=== PATIENT | female | born 1950 | race Caucasian/White ===

== ENCOUNTER → 2020-01-19 13:12 | Outpatient (CLI) | payer MEDICARE, SELFPAY ==
--- NOTE | ~2020-01-19 | MM_ITS ---
EXAMINATION: MM screening [facility] BI w [facility] HISTORY: Screening mammogram TECHNIQUE: Craniocaudal and mediolateral oblique 3-D tomosynthesis images were obtained and synthetic 2-D images were generated. CAD analysis was submitted and interpreted. COMPARISON: 10/08/2018, 10/06/2017, 09/30/2017, 09/13/2016, 09/11/2016 BREAST PARENCHYMAL COMPOSITION: There are scattered areas of fibroglandular density. FINDINGS: RIGHT BREAST: There is possible architectural distortion in the middle third of the central breast be st appreciated 6.5 cm from the nipple on craniocaudal tomosynthesis image 32/70. LEFT BREAST: There is no evidence of suspicious mass, calcification, or architectural distortion to s uggest malignancy. There has been no significant interval change. IMPRESSION: 1. Possible right breast architectural distortion. 2. Additional mammographic views and possible breast ultrasound are recommended. BI-RADS Category 0: Incomplete: Needs additional imaging evaluation. Reviewed, dictated and finalized at location A. IMPRESSION: 1. Possible right breast architectural distortion. 2. Additional mammographic views and possible breast ultrasound are recommended . BI-RADS Category 0: Incomplete: Needs additional imaging evaluation.
== END ==
PROVIDERS: PCP Family Medicine; Visit Provider Family Medicine
DX: Z12.31 Encounter for screening mammogram for malignant neoplasm of breast (principal); R92.8 Other abnormal and inconclusive findings on diagnostic imaging of breast
CPT/HCPCS: 77063; 77067

== ENCOUNTER → 2020-01-28 08:25 | Outpatient (CLI) | payer MEDICARE, SELFPAY ==
--- NOTE | ~2020-01-28 | MMUS_ITS ---
EXAMINATION: MM diagnostic mammo unilat RT, US breast RT limited HISTORY: Possible architectural distortion of the right breast on screening mammogram TECHNIQUE: Additional 3-D tomosynthesis images of the right breast were performed and synthetic 2-D i mages were generated. CAD analysis was submitted and interpreted. High resolution limited right breas t ultrasound was performed. COMPARISON: 10/08/2018, 10/06/2017, 09/30/2017, 09/11/2016 FINDINGS: MAMMOGRAPHIC FINDINGS: There is architectural distortion in the middle third of the slightly outer right breast at the 9:00 location 7 cm from the nipple. There is a questionable 3 mm central mass (CC tomosynthesis image 31/6 3). No suspicious calcification is identified. ULTRASOUND: There is a questionable 3 mm hypoechoic, not parallel mass with indistinct margins at the 8:30 locati on 2 cm from the nipple with posterior acoustic shadowing and no internal vascularity. It is not ramez r if this corresponds to the mammographic finding in question. IMPRESSION: 1. Right breast architectural distortion and possible mass without definite sonographic correlate. 2. Tomosynthesis guided biopsy is recommended. BI-RADS category 4, suspicious findings. Reviewed, dictated and finalized at location A. IMPRESSION: 1. Right breast architectural distortion and possible mass without definite son ographic correlate. 2. Tomosynthesis guided biopsy is recommended. BI-RADS category 4, suspicious findings.
== END ==
PROVIDERS: PCP Family Medicine; Visit Provider Family Medicine
DX: R92.8 Other abnormal and inconclusive findings on diagnostic imaging of breast (principal)
CPT/HCPCS: 76642; 77065

== ENCOUNTER 2021-03-15 13:56 | Outpatient (CLI) | payer MEDICARE, SELFPAY ==
--- NOTE | ~2021-03-15 | DEXA_ITS ---
Bone Density Report Name: Michelle Colon Age: 70 Sex: Female Ethnicity: White Date of : 1950 Indication: postmenopausal; inflammatory bowel disease; hysterectomy; Referring Provider: Charles De Los Santos Study: Bone densitometry was performed. Exam Date: March 15, 2021 Accession number: [id number] Bone Density: Region BMD T-score Z-score Classification AP Spine (L1-L4) 1.142 0.9 2.9 Normal Femoral Neck (Left) 0.663 -1.7 0.0 Osteopenia Total Hip (Left) 0.863 -0.6 0.8 Normal Total Hip Bilateral Avg 0.865 -0.6 0.8 Normal Femoral Neck (Right) 0.678 -1.5 0.2 Osteopenia Total Hip (Right) 0.867 -0.6 0.8 Normal World Health Organization criteria for BMD impression classify patients as: Normal (T-score at or above -1.0), Osteopenia (T-score between -1.0 and -2.5), or Osteoporosis (T-score at or below -2.5). 10-year Fracture Risk: FRAX not reported because: Treated for osteoporosis Clinical Information Provided by Patient: Is being treated for osteoporosis Has the following medical conditions: Inflammatory bowel diseases, Hysterectomy Patient maximum height was 66 Menopause Age: 32 No regular weight bearing exercise Drinks caffeinated beverages Onset of menses at age 15 Number of children 2 Impression: The patient has low bone mass, based on the Left Femoral Neck T-score. Discussion: It is important to ask patients whether they are taking their medications and to encourage continued and appropriate compliance with their osteoporosis therapies to reduce fracture risk. It is also important to review their risk factors and encourage appropriate calcium and vitamin D intakes, exercise, fall prevention and other lifestyle measures. Follow-Up: Consider a repeat BMD and Vertebral Fracture Assessment (VFA) exam in 2 years or sooner if medically necessary, to reassess this patient's status. Reported by: EDYTA on 03/15/2021 2:39:00 PM. Reviewed, dictated and finalized at location ACarlos SIMS
== END 2021-03-15 13:57 | disposition home or self-care (01) ==
LOC: ANHIMG 14:05
PROVIDERS: PCP Family Medicine; Visit Provider Physician Assistant Medical
DX: Z78.0 Asymptomatic menopausal state (principal); N95.8 Other specified menopausal and perimenopausal disorders; M85.851 Other specified disorders of bone density and structure, right thigh; M85.852 Other specified disorders of bone density and structure, left thigh
CPT/HCPCS: 77080

== ENCOUNTER 2021-03-21 00:10 | Day surgery (SDC) | payer MEDICARE, SELFPAY ==
[2021-03-08 15:34] VITALS: BMI 23.1
[2021-03-21 06:54] VITALS: BP 107/53; PULSE 93; RESP 18; TEMP 36.1; O2SAT 99; BMI 23.3
[2021-03-21] MEDS: LACTATED RINGERS 1,000 ML 150 ML IV CONT (07:04)
[2021-03-21 07:06] LABS: Glucose Point of Care 167 mg/dl (65-105)
--- NOTE | 2021-03-21 07:14 | WPDANESEPPF ---
Anes - Initial Pre Proc Eval Procedure: Operation Date: 03/21/21 08:00 Proposed Procedures p Screening Colonoscopy - Stef Burr MD Date/Time: 03/21/21 07:14 Surgeon: Stef Burr MD Pre Op Diagnosis: hx of colon polyps, family hx of colon ca Patient Data Age: 70 Gender: F Height: 1.68 m Weight: 65.5 kg Last Vital Signs Temp 36.1 C L 03/21/21 06:54 Pulse 93 03/21/21 06:54 Resp 18 03/21/21 06:54 BP 107/53 L 03/21/21 06:54 Pulse Ox 99 03/21/21 06:54 Allergies Allergy/AdvReac Type Severity Reaction Status Date / Time No Known Allergies Allergy Verified 03/21/21 06:52 Home Medications Medication Instructions Recorded Confirmed Type brimonidine 0.2 % eye drops 1 drop EACH EYE Q8H 06/03/19 03/21/21 History latanoprost 0.005 % eye drops 1 drop EACH EYE DAILY 06/03/19 03/21/21 History timolol 0.5 % eye drops 1 drop EACH EYE Q12H 06/03/19 03/21/21 History rosuvastatin 10 mg tablet 10 mg PO DAILY #90 tablet 09/13/20 03/21/21 Rx blood-glucose meter #1 ea 09/29/20 03/14/21 Rx blood sugar diagnostic #100 ea 10/04/20 03/14/21 Rx lancets #100 ea 10/04/20 03/14/21 Rx fluoxetine 20 mg capsule See Rx Instructions .ROUTE 10/16/20 03/21/21 Rx .COMPLEX #90 cap lisinopril 20 mg tablet 20 mg PO DAILY tablet 11/03/20 03/14/21 History metformin 500 mg tablet,extended See Rx Instructions .ROUTE 11/22/20 03/14/21 Rx release 24 hr .COMPLEX #270 tablet spironolactone 50 mg tablet 50 mg PO BID #180 tablet 01/16/21 03/21/21 Rx meloxicam See Rx Instructions .ROUTE 03/08/21 03/21/21 History .COMPLEX PRN icosapent ethyl 1 gram capsule 2 g PO BID #360 cap 03/14/21 03/21/21 Rx Laboratory Tests 03/21/21 07:02 POC Capillary Glucose 167 mg/dl H mg/dl (65-105) Patient hx anesthesia problems: none Family hx anesthesia problems: none PMFSH Past Medical History Medical History Androgenic alopecia Conn syndrome Gout Hypertriglyceridemia Internal hemorrhoids Rotator cuff tear arthropathy of left shoulder (~2007) Statin intolerance Surgical History Surgical History History of hemorrhoidectomy History of hernia repair History of hysterectomy (~1992) Hx of cholecystectomy (~2013) Family History Family History Grandparent Diabetes mellitus Family history of glaucoma Hypertension Family history of cardiovascular disease Cerebrovascular accident Father Family history of glaucoma Hypertension Family history of elevated blood lipids Cerebrovascular accident Carcinoma of colon Family history of type 2 diabetes mellitus Sibling Family history of glaucoma Hypertension Family history of elevated blood lipids Mother Hypertension Other Family history of gout Social History Social History Years smoked: 20 Tobacco type: cigarettes Smoking end date: 07/14/09 Alcohol intake: never Living arrangements: with family Gender identity (if verbalized by the patient): Female Spiritual care concerns: No Anes - Eval Final PreProcedure Day of Procedure 03/21/21 07:14 Patient weight: normal Heart: regular rate and rhythm Lungs: clear to auscultation Airway: Mallampati scale class II Neurological: alert and oriented Last oral intake: >/= 8 hours ASA classification: II Emergent: no Anesthetic plan: proceed Anesthesia type and monitoring: general GIVS and standard monitoring Informed Consent: The patient's anesthetic plan and its attendant risks and benefits were discussed with the patient/family/POA. Questions were solicited and answers provided to the satisfaction of the patient/family/POA.
--- NOTE | 2021-03-21 07:41 | WPDGICN ---
Assessment and Plan Assessment and plan (1) History of colon polyps: Code(s): Z86.010 - Personal history of colonic polyps Status: Acute Assessment and Plan: Patient presents for colonoscopy because of prior history of colon polyps. Follow-up at 5 year intervals is advised. (2) Family history of colon cancer in father: Code(s): Z80.0 - Family history of malignant neoplasm of digestive organs Status: Acute Assessment and Plan: Patient's father had colon cancer. Also suggesting follow-up at 5 year intervals as appropriate. GI Consult Note Consult date/time: 03/21/21 07:41 HPI: Michelle Colon is a 70 year old female Presents for screening colonoscopy. She has had colon polyps in several previous endoscopies. Family history is significant her father had colon cancer. Patient reports that her current weight appetite bowel movements are normal. She denies abdominal pain. Most recent colonoscopy 2017 revealed colon polyps. Patient does report a distant history of diverticulitis but has had no recent abdominal pain. Her bowel habits are normal. Review of Systems Review of Systems: All systems reviewed & are unremarkable except as noted in HPI and below PMFSH Past Medical History Medical History Androgenic alopecia Conn syndrome Gout Hypertriglyceridemia Internal hemorrhoids Rotator cuff tear arthropathy of left shoulder (~2007) Statin intolerance Surgical History Surgical History History of hemorrhoidectomy History of hernia repair History of hysterectomy (~1992) Hx of cholecystectomy (~2013) Family History Family History Grandparent Diabetes mellitus Family history of glaucoma Hypertension Family history of cardiovascular disease Cerebrovascular accident Father Family history of glaucoma Hypertension Family history of elevated blood lipids Cerebrovascular accident Carcinoma of colon Family history of type 2 diabetes mellitus Sibling Family history of glaucoma Hypertension Family history of elevated blood lipids Mother Hypertension Other Family history of gout Social History Social History Years smoked: 20 Tobacco type: cigarettes Smoking end date: 07/14/09 Alcohol intake: never Living arrangements: with family Gender identity (if verbalized by the patient): Female Spiritual care concerns: No Meds Home Medications and Allergies Home Medications Medication Instructions Recorded Confirmed Type brimonidine 0.2 % eye drops 1 drop EACH EYE Q8H 06/03/19 03/21/21 History latanoprost 0.005 % eye drops 1 drop EACH EYE DAILY 06/03/19 03/21/21 History timolol 0.5 % eye drops 1 drop EACH EYE Q12H 06/03/19 03/21/21 History rosuvastatin 10 mg tablet 10 mg PO DAILY #90 tablet 09/13/20 03/21/21 Rx blood-glucose meter #1 ea 09/29/20 03/14/21 Rx blood sugar diagnostic #100 ea 10/04/20 03/14/21 Rx lancets #100 ea 10/04/20 03/14/21 Rx fluoxetine 20 mg capsule See Rx Instructions .ROUTE 10/16/20 03/21/21 Rx .COMPLEX #90 cap lisinopril 20 mg tablet 20 mg PO DAILY tablet 11/03/20 03/14/21 History metformin 500 mg tablet,extended See Rx Instructions .ROUTE 11/22/20 03/14/21 Rx release 24 hr .COMPLEX #270 tablet spironolactone 50 mg tablet 50 mg PO BID #180 tablet 01/16/21 03/21/21 Rx meloxicam See Rx Instructions .ROUTE 03/08/21 03/21/21 History .COMPLEX PRN icosapent ethyl 1 gram capsule 2 g PO BID #360 cap 03/14/21 03/21/21 Rx Allergies Allergy/AdvReac Type Severity Reaction Status Date / Time No Known Allergies Allergy Verified 03/21/21 06:52 Vital Signs Vital Signs - 24 hr 03/21/21 06:54 Temperature 97 F L Pulse Rate 93 Respiratory Rate 18 Blood Pressure 107/53 L Pulse Oximetry 99 Exam Narrati
[2021-03-21 08:54] VITALS: BP 118/61; PULSE 80; RESP 16; O2SAT 96
[2021-03-21 09:03] LABS: Glucose Point of Care 127 mg/dl (65-105)
[2021-03-21 09:04] VITALS: BP 92/58; PULSE 77; RESP 18; O2SAT 98
[2021-03-21 09:14] VITALS: BP 86/54; PULSE 78; RESP 20; O2SAT 98
[2021-03-21 09:24] VITALS: BP 91/55; PULSE 80; RESP 18; O2SAT 98
== END 2021-03-21 10:35 | disposition home or self-care (01) ==
PROVIDERS: PCP Family Medicine; Visit Provider Internal Medicine Gastroenterology
PROC: 0DJD8ZZ Inspection of Lower Intestinal Tract, Via Natural or Artificial Opening Endoscopic (ICD-10-PCS; CPT 45378; principal; 2021-03-21 08:00)
DX: Z12.11 Encounter for screening for malignant neoplasm of colon (principal); K57.30 Diverticulosis of large intestine without perforation or abscess without bleeding; K64.8 Other hemorrhoids; Z86.010 Personal history of colon polyps; Z80.0 Family history of malignant neoplasm of digestive organs; E78.1 Pure hyperglyceridemia; M10.9 Gout, unspecified; E26.01 Conn's syndrome; L64.9 Androgenic alopecia, unspecified; Z87.891 Personal history of nicotine dependence; Z79.84 Long term (current) use of oral hypoglycemic drugs
CPT/HCPCS: G0105; 82948; J2704; J7120

== ENCOUNTER 2021-05-24 08:36 | Emergency (ER) | payer MEDICARE, SELFPAY ==
--- NOTE | ~2021-05-24 | XR_ITS ---
EXAMINATION: XR foot LT min 3V DATE: 05/24/2021 10:04 INDICATION: Left foot pain TECHNIQUE: Dorsoplantar, lateral, and 2 oblique views of the left foot were obtained. COMPARISON: 06/02/2012 FINDINGS: The bones are osteopenic which limits the sensitivity for fracture however none is seen. Th ere is mild osteoarthritis of multiple interphalangeal joints. Surgical changes are noted in the calc aneus. There is calcified atherosclerosis. There is mild dorsal soft tissue swelling of the foot. IMPRESSION: 1. Mild dorsal soft tissue swelling of the foot without acute osseous abnormality identified. Reviewed, dictated and finalized at location B. R [employer] IMPRESSION: 1. Mild dorsal soft tissue swelling of the foot without acute osseous abnormali ty identified.
[2021-05-24 09:04] VITALS: BP 113/66; PULSE 92; RESP 16; TEMP 37.7; O2SAT 99
[2021-05-24 09:17] VITALS: BP 113/66; PULSE 92; RESP 16; TEMP 37.7; O2SAT 99
--- NOTE | 2021-05-24 09:41 | ED.LOWEXIN ---
HPI - Extremity Injury (Lower) General Chief Complaint: Extremity Injury, Lower Stated Complaint: left foot pain History of Present Illness HPI Narrative: This is a 70-year-old female comes in complaining left foot pain swelling states that it started couple days ago but is increasingly gotten worse she is not for sure if she has like a fracture from stress fractures or if she has something else going on but the top of her foot is hurting. Related Data Home Medications Medication Instructions Recorded Confirmed brimonidine 0.2 % eye drops 1 drop EACH EYE Q8H 06/03/19 05/24/21 latanoprost 0.005 % eye drops 1 drop EACH EYE DAILY 06/03/19 05/24/21 timolol 0.5 % eye drops 1 drop EACH EYE Q12H 06/03/19 05/24/21 meloxicam See Rx Instructions .ROUTE 03/08/21 05/24/21 .COMPLEX PRN Allergies Allergy/AdvReac Type Severity Reaction Status Date / Time No Known Allergies Allergy Verified 05/24/21 09:16 Review of Systems Review of Systems: l foot pain All systems reviewed & are unremarkable except as noted in HPI and below PMFSH Past Medical History Medical History Androgenic alopecia Conn syndrome Gout Hypertriglyceridemia Internal hemorrhoids Rotator cuff tear arthropathy of left shoulder (~2007) Statin intolerance Surgical History Surgical History History of hemorrhoidectomy History of hernia repair History of hysterectomy (~1992) Hx of cholecystectomy (~2013) Family History Family History Grandparent Diabetes mellitus Family history of glaucoma Hypertension Family history of cardiovascular disease Cerebrovascular accident Father Family history of glaucoma Hypertension Family history of elevated blood lipids Cerebrovascular accident Carcinoma of colon Family history of type 2 diabetes mellitus Sibling Family history of glaucoma Hypertension Family history of elevated blood lipids Mother Hypertension Other Family history of gout Social History Social History (Updated 05/21/21 @ 09:59 by Amaris Reyes Сергей) Years smoked: 20 Tobacco type: cigarettes Smoking end date: 07/14/09 Alcohol intake: never Gender identity (if verbalized by the patient): Female Spiritual care concerns: No Comments At time as signature, I have reviewed and agree with nursing past medical, social, surgical and family history. Please see nursing chart for further information. There is no relevant family history pertinent to the presenting complaint. Exam Narrative: GENERAL:Well-appearing, well-nourished, and in no acute distress. HEAD:Normocephalic. EYES: PERRLA. ENT: Nares clear, no rhinorrhea or epistaxis. CHEST: No respiratory distress. HEART: Regular rate and rhythm. ABDOMEN: normal active bowel sounds. EXTREMITIES decreased range of motion due to pain with. 1+ edema. SKIN: Warm, dry, no rash. NEURO: No focal deficits. Alert and oriented x3. Course Course Emergency Course: Mild dorsal soft tissue swelling of the foot without a QRS abnormality is identified although there is osteopenic changes that limits the sensitivity for further Vital Signs Vital signs: Vital Signs Temperature 99.8 F H 05/24/21 09:04 Pulse Rate 92 05/24/21 09:04 Respiratory Rate 16 05/24/21 09:04 Blood Pressure 113/66 05/24/21 09:04 Pulse Oximetry 99 05/24/21 09:04 Temperature 99.8 F H 05/24/21 09:17 Pulse Rate 92 05/24/21 09:17 Respiratory Rate 16 05/24/21 09:17 Blood Pressure 113/66 05/24/21 09:17 Pulse Oximetry 99 05/24/21 09:17 Discharge Plan Discharge Clinical Impression: Osteoarthritis of ankle or foot Patient Disposition: Home, Self-Care Condition: Stable Instructions: Antibiotic Form, Osteoarthritis (ED), Self-Care Measures with a Chronic Disease (ED) Additional Instruc
== END 2021-05-24 11:00 | disposition home or self-care (01) ==
PROVIDERS: Emergency Provider Nurse Practitioner Family; PCP Family Medicine
DX: M19.072 Primary osteoarthritis, left ankle and foot (principal); E26.01 Conn's syndrome; M10.9 Gout, unspecified; E78.1 Pure hyperglyceridemia; L64.9 Androgenic alopecia, unspecified
CPT/HCPCS: 73630; 99213; G0463

== ENCOUNTER 2022-03-13 08:04 | Outpatient (CLI) | payer MEDICARE, SELFPAY ==
--- NOTE | ~2022-03-13 | US_ITS ---
EXAMINATION: US art doppler w press LE BI DATE: 03/13/2022 09:27 INDICATION: Peripheral vascular disease. Right toe pain TECHNIQUE: Segmental pressures and plethysmographic and Doppler waveforms of the brachial and lower e xtremity arteries were obtained. COMPARISON: None. FINDINGS: Right and left brachial artery pressures of 104 mm Hg and 108 mm Hg, respectively, are concordant (no rmal difference <= 30 mmHg). The left high thigh pressure index is 1.44, respectively (normal > 1.2). The right high thigh pressure index was unable to be obtained due to inability to occlude the vessel . The right ankle-brachial index (ДМИТРИЙ) is 1.44 (normal >= 0.9-1). The right great toe-brachial index (T BI) is 0.48 (normal >= 0.6-0.8). The right lower extremity segmental pressure gradients are increased between the right dorsalis pedis artery and the right posterior tibial artery (normal gradients <= 2 0-30 mmHg between adjacent levels on the same leg or the same levels on the two legs). Arterial wavef orms are biphasic with brisk systolic upstrokes throughout the arteries of the right lower limb. The left ДМИТРИЙ is 1.61. The left TBI is 0.68. The left lower extremity segmental pressure gradients are increased between the left dorsalis pedis and posterior tibial arteries. Arterial waveforms are biph asic with brisk systolic upstrokes throughout the arteries of the left lower limb. IMPRESSION: 1. Mild arterial occlusive disease to the right lower limb with mildly decreased right TBI. 2. No significant arterial occlusive disease to the left lower limb with normal left ДМИТРИЙ and TBI. Reviewed, dictated and finalized at location A. IMPRESSION: 1. Mild arterial occlusive disease to the right lower limb with mildly decrease d right TBI. 2. No significant arterial occlusive disease to the left lower limb with normal left ДМИТРИЙ and TBI.
== END 2022-03-13 08:05 | disposition home or self-care (01) ==
PROVIDERS: PCP Family Medicine; Visit Provider Orthopaedic Surgery
DX: I73.9 Peripheral vascular disease, unspecified (principal)
CPT/HCPCS: 93923

== ENCOUNTER 2022-06-05 10:55 | Outpatient (CLI) | payer MEDICARE, SELFPAY ==
--- NOTE | 2022-06-05 11:04 | ECG_ITS ---
Measurements Intervals [place] Rate: 76 P: 35 OH: 196 QRS: -12 QRSD: 80 T: 37 QT: 368 QTc: 414 Interpretive Statements SINUS RHYTHM POOR R WAVE PROGRESSION, ANTERIOR LEADS BASELINE ARTIFACT- I, II, III, AVR, AVL, AVF, V1-V6 BORDERLINE ECG NO PREVIOUS ECG AVAILABLE FOR COMPARISON Electronically Signed On 06-05-2022 12:01:01 COPY WRITER by Nicolas Parra D.O.
== END 2022-06-05 10:56 | disposition home or self-care (01) ==
LOC: ANHSURGERY 10:59
PROVIDERS: PCP Family Medicine; Visit Provider Orthopaedic Surgery
DX: E11.65 Type 2 diabetes mellitus with hyperglycemia (principal); Z01.818 Encounter for other preprocedural examination
CPT/HCPCS: 93005

== ENCOUNTER 2022-06-13 01:28 | Day surgery (SDC) | payer MEDICARE, SELFPAY ==
[2022-06-04 15:37] VITALS: BMI 22.6
--- NOTE | 2022-06-04 15:53 | PC.NURSE ---
Report to the Outpatient Waiting Room, entrance under the green pavilion located off [facility], at time _1000_ on date _06/13/22_. Planned Procedure Time: _1200_. Time changes happen often and if your time is changed the preop area will call you the afternoon before. - You and your visitor will be asked to self-screen and do not enter if you have any COVID symptoms. - Only one visitor is requested with a max of two and NO children visitors are allowed at this time. - The patient visitor may be requested to leave or wait in car when not with patient due to distancing restrictions. - A mask is optional within the hospital. Patients may have clear liquids (water, carbonated beverages, clear teas, apple juice) until 3 hours prior to surgery (0900 AM) with a maximum of 20 ounces. - No food from midnight until time of surgery Take the following medications with a SIP of water the morning of surgery: _BRIMONIDINE & TIMOLOL EYE DROPS_ Medications to discontinue per physician __N/A____, Date to take last dose Please no make-up, nail georgian, hairspray, perfume, deodorant, or body powder the day of surgery. No jewelry (including any body piercings) or valuables the day of surgery, leave them at home. Please take a shower or bath the night before, or the morning of, surgery with an antibacterial soap. Wear comfortable, loose fitting clothing. - Jewelry must be removed prior to entering the operating room. Rings and piercings that are not removed may be cut off. - The hospital will not accept responsibility for valuables. - Please leave all valuables, including medications, at home the day of surgery. If you are going home after surgery, a licensed garbage truck driver must drive you home. - NO public transportation without another adult if you receive anesthesia. - We recommend that an adult stay with you for 24 hours following discharge. - We also recommend that you do not drive, make important decision, drink alcoholic beverages, or take any drugs that were not prescribed by your health care provider for at least 24 hours after your discharge time. Follow any additional instructions given to you from your surgeon. If you or anyone in your household have experienced Covid symptoms in the past week, please notify your surgeon or the nurse liaison at the phone number below for possible testing. Telephone instructions given to ___PT and asked if any additional questions and then verbalized understanding. Patient advised to call surgeon office or pre surgery nurse liaison [phone] if any additional questions.
--- NOTE | 2022-06-05 10:51 | PM.IMHP ---
H&P: HPI History of Present Illness Date/Time: 06/05/22 10:51 Chief Complaint: right 2nd toe deformity and pain Narrative: Right foot/2nd toe pain/deformity. Pt states that she has had the deformity for 5-6 years, however, in the past 8mo she started noticing pain. Pt states that she has tried and failed taking Tylenol/Ibuprofen for pain and presents for surgical treatment. Pt states that the pain is intermittent and will occur during walking/prolonged activity. Review of Systems Constitutional: Constitutional: Denies fever(s) Eyes: Eyes: Denies blurry vision ENT: Reports Normal hearing present Cardiovascular: Cardiovascular: Denies chest pain and Denies dyspnea Respiratory: Respiratory: Denies dyspnea and Denies wheezing Gastrointestinal: Gastrointestinal: Denies abdominal pain Genitourinary: Genitourinary: Denies urinary urgency Musculoskeletal: Musculoskeletal: Reports as per HPI and Denies numbness Integumentary/Breasts: Skin/Breast: Denies changing lesions and Denies sores Neurologic: Reports Normal hearing present, Denies behavioral changes, Denies confusion, Denies numbness and Denies convulsions Psychiatric: Psychiatric: Denies behavioral changes, Denies confusion and Denies hallucinations Endocrine: Endocrine: Denies heat intolerance Hematologic/Lymphatic: Hematologic/Lymphatic: Denies easy bleeding Allergic/Immunologic: Allergic/Immunologic: Denies wheezing PMFSH Past Medical History Medical History Androgenic alopecia Conn syndrome Gout Hammertoe of second toe of right foot Hypertriglyceridemia Internal hemorrhoids Peripheral arterial occlusive disease Rotator cuff tear arthropathy of left shoulder (~2007) Statin intolerance Surgical History Surgical History H/O breast surgery Left breast biopsy History of hemorrhoidectomy History of hernia repair History of hysterectomy (~1992) 1992 Hx of cholecystectomy (~2013) Family History Family History Grandparent Diabetes mellitus Family history of glaucoma Hypertension Family history of cardiovascular disease Cerebrovascular accident Father Family history of glaucoma Hypertension Family history of elevated blood lipids Cerebrovascular accident Carcinoma of colon Family history of type 2 diabetes mellitus Sibling Family history of glaucoma Hypertension Family history of elevated blood lipids Mother Hypertension Other Family history of gout Social History Social History Smoking packs per day: 1 Smoking cigarettes per day: 20.0 Years smoked: 20 Smoking pack-years: 20.00 Smoking status: Former smoker Tobacco type: cigarettes Second hand tobacco smoke exposure: No Smoking end date: 07/14/09 Alcohol intake: never Substance use: never Substance use type: does not use Gender identity (if verbalized by the patient): Female Spiritual care concerns: No Meds Home Medications and Allergies Home Medications Medication Instructions Recorded Confirmed Type brimonidine 0.2 % eye drops 1 drop ophthalmic (eye) BID 06/03/19 06/04/22 History latanoprost 0.005 % eye drops 1 drop ophthalmic (eye) DAILY 06/03/19 06/04/22 History timolol 0.5 % eye drops 1 drop ophthalmic (eye) Q12H 06/03/19 06/04/22 History blood-glucose meter (OneTouch #1 ea 09/29/20 06/04/22 Rx Verio Flex Meter) lancets (OneTouch UltraSoft #100 ea 10/04/20 06/04/22 Rx Lancets) metformin 500 mg tablet,extended See Rx Instructions .Route 01/31/22 06/04/22 Rx release 24 hr .COMPLEX #360 tabs blood sugar diagnostic (Accu-Chek #100 ea 02/01/22 06/04/22 Rx Eileen Plus test strips) rosuvastatin 5 mg tablet (Crestor) 5 mg PO DAILY #90 tabs 05/10/22 06/04/22 Rx lisinopril 5 mg tablet See Rx Instructions .Rou
[2022-06-13] VITALS (8 sets, daily range): BP systolic 91–130; BP diastolic 46–67; PULSE 64–81; RESP 13–20; TEMP 36.1–36.2; O2SAT 99–100
--- NOTE | ~2022-06-13 | XR_ITS ---
XR surgery orthopedic DATE: 06/13/2022 11:33 INDICATION: Hammertoe correction TECHNIQUE: 3 spot C-arm images of the forefoot 4. Seconds total fluoroscopy exposure time 0.4685 cGycm2 total DAP COMPARISON: 02/27/2022 right foot FINDINGS: A K wire extends through the distal, middle and proximal phalanges of the second digit into the second metatarsal head, exiting the neck of the second metatarsal bone laterally for short dista nce. IMPRESSION: ORIF second hammertoe deformity Reviewed, dictated and finalized at Location [facility]. Reviewed, dictated and finalized at location B. LOADER
--- NOTE | 2022-06-13 07:03 | WPDHPUPDATE1 ---
History and Physical Update Update Date/Time: 06/13/22 07:03 History and Physical has been reviewed, including an updated exam of the patient. There are NO changes in the patient's condition. Risks, benefits, and alternatives have been discussed and questions answered. Patient agrees to proceed with procedure.
[2022-06-13] MEDS: LACTATED RINGERS 1,000 ML 30 ML IV CONT ×2 (10:20→11:39)
[2022-06-13] MEDS: ACETAMINOPHEN 500 MG TABLET 1000 MG PO (10:23)
[2022-06-13] MEDS: KETOROLAC 15 MG/ML VIAL (*BKC) IV PUSH (10:23)
--- NOTE | 2022-06-13 10:28 | WPDANESEPPF ---
Anes - Initial Pre Proc Eval Procedure: Operation Date: 06/13/22 12:00 Proposed Procedures p Right Second Hammer Toe Correction - Peewee Cook MD Date/Time: 06/13/22 10:28 Surgeon: Peewee Cook MD Pre Op Diagnosis: right second hammer toe Patient Data Age: 71 Gender: F Height: 1.68 m Weight: 63.63 kg Last Vital Signs O2 Del Method Room Air 06/13/22 09:45 Allergies Allergy/AdvReac Type Severity Reaction Status Date / Time No Known Allergies Allergy Verified 06/04/22 15:34 Home Medications Medication Instructions Recorded Confirmed Type brimonidine 0.2 % eye drops 1 drop ophthalmic (eye) BID 06/03/19 06/04/22 History latanoprost 0.005 % eye drops 1 drop ophthalmic (eye) DAILY 06/03/19 06/04/22 History timolol 0.5 % eye drops 1 drop ophthalmic (eye) Q12H 06/03/19 06/04/22 History blood-glucose meter (OneTouch #1 ea 09/29/20 06/04/22 Rx Verio Flex Meter) lancets (OneTouch UltraSoft #100 ea 10/04/20 06/04/22 Rx Lancets) metformin 500 mg tablet,extended See Rx Instructions .Route 01/31/22 06/04/22 Rx release 24 hr .COMPLEX #360 tabs blood sugar diagnostic (Accu-Chek #100 ea 02/01/22 06/04/22 Rx Eileen Plus test strips) rosuvastatin 5 mg tablet (Crestor) 5 mg PO DAILY #90 tabs 05/10/22 06/04/22 Rx lisinopril 5 mg tablet See Rx Instructions .Route 05/27/22 06/04/22 Rx .COMPLEX #90 tabs spironolactone 50 mg tablet See Rx Instructions .Route 05/27/22 06/04/22 Rx .COMPLEX #180 tabs hydrocodone 5 mg-acetaminophen 325 1 tablet PO Q6H PRN pain #20 tabs 06/13/22 Rx mg tablet ondansetron 8 mg disintegrating 8 mg PO Q8H PRN nausea and 06/13/22 Rx tablet vomiting #10 tabs sennosides 8.6 mg-docusate sodium 1 tab-cap PO BID PRN constipation 06/13/22 Rx 50 mg tablet (Senna with Docusate #20 tabs Sodium) Patient hx anesthesia problems: none Family hx anesthesia problems: none Results Review: All pre-operative results and documents have been reviewed as part of the pre-operative evaluation. FOR[facility] Past Medical History Medical History Androgenic alopecia Conn syndrome Gout Hammertoe of second toe of right foot Hypertriglyceridemia Internal hemorrhoids Peripheral arterial occlusive disease Rotator cuff tear arthropathy of left shoulder (~2007) Statin intolerance Surgical History Surgical History H/O breast surgery Left breast biopsy History of hemorrhoidectomy History of hernia repair History of hysterectomy (~1992) 1992 Hx of cholecystectomy (~2013) Family History Family History Grandparent Diabetes mellitus Family history of glaucoma Hypertension Family history of cardiovascular disease Cerebrovascular accident Father Family history of glaucoma Hypertension Family history of elevated blood lipids Cerebrovascular accident Carcinoma of colon Family history of type 2 diabetes mellitus Sibling Family history of glaucoma Hypertension Family history of elevated blood lipids Mother Hypertension Other Family history of gout Social History Social History Smoking packs per day: 1 Smoking cigarettes per day: 20.0 Years smoked: 20 Smoking pack-years: 20.00 Smoking status: Former smoker Tobacco type: cigarettes Second hand tobacco smoke exposure: No Smoking end date: 07/14/09 Alcohol intake: never Substance use: never Substance use type: does not use Living arrangements: with family Gender identity (if verbalized by the patient): Female Spiritual care concerns: No Anes - Eval Final PreProcedure Day of Procedure 06/13/22 10:28 Patient weight: normal Heart: regular rate and rhythm Lungs: clear to auscultation Airway: Mallampati scale class II Neurological: alert and oriented Last
[2022-06-13 10:43] LABS: Glucose Point of Care 109 mg/dl (65-105)
[2022-06-13] MEDS: ceFAZolin 2 GM/D5W 50 ML 2 GM/50 ML BAG IVPB (10:51)
[2022-06-13] MEDS: BUPIVACAINE HCL 0.5% PF 30 ML VIAL INFILTRATE (11:14)
--- NOTE | 2022-06-13 11:45 | P.OP_ITS ---
Procedure Note - Detailed Date of Procedure 06/13/22 Pre-op Diagnosis right second hammer toe Post-op Diagnosis Same Procedure Performed right 2nd hammertoe correction with proximal interphalangeal arthrodesis Surgeon Peewee Cook MD Examining Officer 1st administrative assistant front desk Anesthesia General Indications 71-year-old woman with right 2nd hammertoe deformity. Pain with shoe wear and activity. Unrelieved with padding and strapping. Presents for operative treatment. Description of Procedure Patient identified in the preoperative holding.? Informed consent given.? Operative extremity marked.? Patient received intravenous antibiotics.? Patient brought to the operating room where underwent general anesthetic by anesthesia team.? Positioned supine on operating room table.? Time-out performed confirming the patient, site of the surgery and the plan. Foot and ankle exsanguinated and calf tourniquet inflated to 225 mmHg. Dorsal longitudinal incision made with a 15 blade knife over the proximal interphalangeal joint of the 2nd toe right foot . Hemostasis controlled electrocautery. Dorsal capsulotomy performed and the medial and lateral collateral ligaments released off of the proximal phalanx. Distal end proximal phalanx resected and proximal end of the middle phalanx resected with bone cutter and rongeur. The bone was sized and the hammertoe implant was felt to be too large for placement. Wound was irrigated the joint was reduced and fixed with a 0.045 in K-wire. This was cut outside of the toe. Image intensification confirmed alignment and placement of the pin. Wound thoroughly irrigated once again in the capsule repaired with 3-0 Monocryl interrupted suture. Skin repaired with 4-0 nylon interrupted suture. Sterile dressing applied.? The patient was then woken from anesthesia, extubated and taken to the recovery room in stable condition.? All sponge, needle, instrument counts were correct at the end of the case. Implants 0.045 in K-wire Estimated Blood Loss 5 Tourniquet Time 8 Drains No Packing No Pathology None sent Complications None Condition Stable Disposition PACU
[2022-06-13 11:57] LABS: Glucose Point of Care 110 mg/dl (65-105)
== END 2022-06-13 13:35 | disposition home or self-care (01) ==
PROVIDERS: PCP Family Medicine; Visit Provider Orthopaedic Surgery
DX: M20.41 Other hammer toe(s) (acquired), right foot (principal); L64.9 Androgenic alopecia, unspecified; E26.01 Conn's syndrome; M10.9 Gout, unspecified; E78.1 Pure hyperglyceridemia; I77.9 Disorder of arteries and arterioles, unspecified; Z87.891 Personal history of nicotine dependence
CPT/HCPCS: 28285; 82948; 97161; 99199; A9270; J0690; J1100; J1885; J2250; J2405; J2704; J3010; J7120

== ENCOUNTER → 2022-06-27 16:26 | Outpatient (CLI) | payer MEDICARE, SELFPAY ==
--- NOTE | ~2022-06-27 | MR_ITS ---
EXAMINATION: MR brain/brain stem wo con DATE: 06/27/2022 17:17 INDICATION: Balance issues and poor memory. TECHNIQUE: Magnetic resonance imaging (MRI) of the brain and brainstem was performed without intraven ous contrast. Sequences included sagittal and axial T1-weighted SE, axial diffusion-weighted FS SE, a xial T2*-weighted GRE, axial 3D SWAN, axial T2-weighted FLAIR, and axial T2-weighted FSE. Apparent di ffusion coefficient (ADC) maps were created. COMPARISON: 03/12/2009 FINDINGS: There are no areas of restricted diffusion to suggest acute infarction. No intracranial hemorrhage or abnormal intracranial mass lesion. Significant interval progression in extensive scattered areas of nonspecific increased T2-weighted signal intensity in the erna and cerebral white matter, predominant ly involving the deep and periventricular white matter. There are no intraparenchymal signal abnormal ities seen on the other pulse sequences. The ventricles are symmetric and normal in size. There are n o abnormal extra-axial fluid collections. Flow voids are seen in the cerebral arteries on the T2-weig hted sequences consistent with their expected patency. Bilateral staphyloma the right globe. The orbi ts and soft tissues are otherwise unremarkable. IMPRESSION: 1. No acute intracranial process. 2. Interval progression of extensive nonspecific periventricular predominant cerebral and pontine whi te matter T2 hyperintensity consistent with chronic small vessel ischemic disease. Reviewed, dictated and finalized at location A. RPILLAR OPERATOR IMPRESSION: 1. No acute intracranial process. 2. Interval progression of extensive nonspecific periventricular predominant ce rebral and pontine white matter T2 hyperintensity consistent with chronic small vessel ischemic disease.
== END ==
PROVIDERS: PCP Family Medicine; Visit Provider Family Medicine
DX: R27.0 Ataxia, unspecified (principal); R41.89 Other symptoms and signs involving cognitive functions and awareness
CPT/HCPCS: 70551

== ENCOUNTER 2022-07-18 13:38 | Outpatient (CLI) | payer MEDICARE, SELFPAY ==
[2022-07-18 19:46] LABS: Basophils Absolute Auto 0.1 K/mm3 (0.0-0.1); Basophils Percent Auto 0.5 % (0.2-1.2); Eosinophils Absolute Auto 0.1 K/mm3 (0-0.3); Eosinophils Percent Auto 1.2 % (0-4.4); Hematocrit 43.6 % (37.0-47.0); Hemoglobin 13.6 g/dL (12.0-15.0); Immature Granulocyte Absolute 0.08 K/mm3 (0.00-0.031); Immature Granulocyte Percent A 0.9 % (0-0.5); Lymphocytes Absolute Auto 1.55 K/mm3 (0.9-3.2); Lymphocytes Percent Auto 16.9 % (18.3-44.2); Mean Corpuscular HGB Conc 31.2 g/dl (32-36); Mean Corpuscular Hemoglobin 27.4 pg (26-34); Mean Corpuscular Volume 87.7 fl (80-100); Monocytes Absolute Auto 0.8 K/mm3 (0.1-0.6); Monocytes Percent Auto 8.3 % (2.6-8.5); Neutrophils Absolute Auto 6.6 K/mm3 (1.3-6.7); Neutrophils Percent Auto 72.2 % (45.5-73.1); Platelet Count Result 245 k/mm3 (150-375); Red Blood Count 4.97 M/mm3 (4.2-5.4); Red Cell Distribution Width 18.4 % (11.5-14.5); White Blood Count 9.2 K/mm3 (4.5-10.0)
[2022-07-18 20:48] LABS: Alanine Aminotransferase 54 U/L (6-35); Albumin Level 3.9 g/dL (3.5-5.1); Alkaline Phosphatase 107 U/L (38-126); Anion Gap 8 mmol/L (8-16); Aspartate Amino Transferase 77 U/L (14-36); Bilirubin,Total 0.6 mg/dL (0.2-1.3); Blood Urea Nitrogen 21 mg/dL (7-17); Calcium 8.7 mg/dL (8.4-10.2); Carbon Dioxide 23 mmol/L (22-30); Chloride 104 mmol/L (98-107); Estimated Glomerular Filt Rate 45; Glucose 114 mg/dL (65-110); Potassium 4.1 mmol/L (3.4-5.0); Sodium 135 mmol/L (137-145)
== END 2022-07-18 13:39 | disposition home or self-care (01) ==
LOC: ANHGOSHLAB 13:41
PROVIDERS: PCP Family Medicine; Visit Provider Family Medicine
DX: N17.9 Acute kidney failure, unspecified (principal); R63.4 Abnormal weight loss
CPT/HCPCS: 36415; 80053; 85025

== ENCOUNTER → 2022-08-05 15:08 | Outpatient (CLI) | payer MEDICARE, SELFPAY ==
--- NOTE | ~2022-08-05 | US_ITS ---
EXAMINATION: US venous doppler LE RT DATE: 08/05/2022 15:25 INDICATION: I82.409 - Acute embolism and thrombosis of unspecified de... . TECHNIQUE: Grayscale images without and with compression and Doppler images of the right lower extrem ity veins were obtained. COMPARISON: None FINDINGS: Acute thrombus in the right popliteal, posterior tibial, and peroneal veins. The right common femoral vein, profunda (deep) femoral vein, femoral vein, gastrocnemius vein, and greater saphenous vein are patent. IMPRESSION: 1. Acute deep venous thrombosis involving the right popliteal, posterior tibial, and peroneal veins. Reviewed, dictated and finalized at location K. WORKER PULLET FARM IMPRESSION: 1. Acute deep venous thrombosis involving the right popliteal, posterior tibia l, and peroneal veins.
== END ==
PROVIDERS: PCP Family Medicine; Visit Provider Family Medicine
DX: I82.401 Acute embolism and thrombosis of unspecified deep veins of right lower extremity (principal)
CPT/HCPCS: 93971

== ENCOUNTER 2022-10-02 13:45 | Outpatient (RCR) | payer MEDICARE, SELFPAY ==
--- NOTE | 2022-09-26 10:02 | OTOPEVDC ---
Assessment and note entered by Charles Patel, OTR/L, CHT Thank you for referring Michelle Colon to [facility].? An evaluation has been completed. No further treatment is needed. Evaluation Information Assessment Status Evaluation Diagnosis Metabolic encephalopathy Subjective Information Patient was admitted to [facility] after going to the ED with weakness, leg swelling, memory loss, and hallucinations. She sustained a fall just prior to her hospitalization when walking the track at the [facility]. She was transferred to inpatient rehab on 09/09/22 and was there for 10 days receiving OT/PT/ST services. She discharged home where she lives with her . She presents today without an assistive device. She has progressed to being independent with ADLs. She is not back to driving. Assessment OT Clinical Summary Patient referred to outpatient OT with dx of encephalopathy following hospitalization and inpatient rehab stay. She has progressed to being independent with ADLs. She demonstrates intact and functional UB strength for ADLs. Bilateral screen printing machine loader unloader strengths were slightly weak and an putty HEP has been issued for this. No further skilled OT indicated at this time. Plan of Care OT Services Indicated No
--- NOTE | 2022-09-26 16:54 | STOPEVDC ---
Assessment and note entered by Linda Jarvis, TIRE BUILDER OPERATOR Thank you for referring Michelle Colon to [facility].? An evaluation has been completed. No further treatment is needed. Evaluation Information Assessment Status Evaluation Assessment Status Evaluation Diagnosis Cognitive Deficits Onset 09/09 Reported Pain Level Pain Score 0: Self Report Pain Score 0: Self Report Assessment ST Clinical Summary COGNITIVE EVALUATION This patient reported a lengthy history including metabolic encephalopathy with admission to [facility] in [place], [place], for six days and then inpatient rehab at [place], [place] for 10 days. While there, she had Speech Therapy for memory and cognition therapy. Today, she repeated several times that she is [age] years old and does not expect her memory to be perfect. Today the patient was given portions of the [employer] Information Processing Assessment. She performed as follows: I. Immediate Memory: 27/30 points. Difficulty with lengthy three-step piece of information and transposing two numbers in a five-number string. II. Recent Memory: 30/30 points. III. Recent Memory/Temporal Orientation: 30/30 points. IV. Remote Memory: 30/30 points. V. Spatial Orientation: 30/30 points. VII.Recall of General Information: 29/30 points. VIII. Problem Solving and Abstract Reasonin/ 30 points; cueing required to determine a third logical reason for someone to be late to an appointment. IX. Organization: 29/30 points. Difficulty recalling many fruit. X. Auditory Processing and Retention: 30/30 points. Patient denied difficulty with most cognitive tasks at home but does admit to forgetfulness at times. She actually told a story about setting her black phone on top of her new black alarm clock to charge it, and then not seeing it and forgetting that it was placed there to charge. Sh
--- NOTE | 2022-10-02 15:17 | PTOPEVDC ---
Assessment and note entered by Ahsan Schuster, PT Thank you for referring Michelle Colon to [facility].? An evaluation has been completed. No further treatment is needed. Evaluation Information Assessment Status Evaluation Diagnosis Brain Injury Subjective Information Patient reports that she was not eating and developed metabolic encephalopathy. She was at [facility] and [facility]. She reports that she did OT and speech therapy outpatient evaluations, but they did not pick her up. She reports no falls since coming home from rehab and no issues with functional mobility. She huy like to get going to the [facility]. Reported Pain Level Pain Score 0: Self Report Assessment PT Clinical Summary Michelle is a 71 year old female coming into the clinic following metabolic encephalopathy. She has good to normal strength, normal endurance, and ood balance. Unable to show issues until doing eyes closed or single limb balance issues. Gave patient HEP to work on balance and instructions to do walking in the pool and use the seated eliptical machine. Does not appear to need continued skilled physical therapy. Plan of Care PT Services Indicated No Treatment Frequency and discharged from skilled physical therapy. Duration
== END 2022-10-04 08:21 | disposition home or self-care (01) ==
LOC: ANHPT 13:45
PROVIDERS: PCP Family Medicine; Visit Provider Family Medicine
DX: G93.41 Metabolic encephalopathy (principal)
CPT/HCPCS: 96125; 97110; 97161; 97165

== ENCOUNTER 2022-10-06 14:51 | Emergency (ER) | payer MEDICARE, SELFPAY ==
[2022-10-06 15:05] VITALS: BP 141/73; PULSE 87; RESP 18; TEMP 36.3; O2SAT 100
--- NOTE | 2022-10-06 15:28 | ED.URI ---
HPI - URI/Sore Throat General Chief Complaint: Upper Respiratory Infection Stated Complaint: Sore Throat Time Seen by Provider: 10/06/22 15:25 Source: patient Mode of arrival: ambulatory Limitations: no limitations History of Present Illness HPI Narrative: Per patient has been acting irrational and not making appropriate choices. Patient was hospitalized last month for 6 days. States she has lost 25 lb in the last few months and is intermittently confused. Patient tested positive for COVID 3 days ago. Per patient sore throat is worse today and that is what she would like to be seen for. Also reports mild congestion and intermittent nonproductive cough. Denies any shortness of breath, fever, chills, ear pain, headache, nausea, vomiting, diarrhea. States she has been taking Tylenol with no relief. Takes a daily allergy medication. Patient states she is unsure why she was hospitalized last month, states she thinks it is because she is still losing weight unintentionally. Was also hospitalized in June for colitis. Related Data Home Medications Medication Instructions Recorded Confirmed brimonidine 0.2 % eye drops 1 drop ophthalmic (eye) BID 06/03/19 10/06/22 latanoprost 0.005 % eye drops 1 drop ophthalmic (eye) DAILY 06/03/19 10/06/22 timolol 0.5 % eye drops 1 drop ophthalmic (eye) Q12H 06/03/19 10/06/22 meloxicam 15 mg tablet 15 mg PO DAILY 08/16/22 10/06/22 lisinopril 20 mg tablet 20 mg PO DAILY 09/25/22 10/06/22 Allergies Allergy/AdvReac Type Severity Reaction Status Date / Time No Known Allergies Allergy Verified 10/06/22 15:30 Review of Systems Review of Systems: All systems reviewed & are unremarkable except as noted in HPI and below Constitutional: Constitutional: Denies body ache(s), Denies fever(s), Denies headache(s), Denies malaise and Denies weakness Eyes: Eyes: Denies loss of vision ENT: Denies otalgia, Denies headache(s), Reports nasal congestion, Denies sinus pain and Reports sore throat Cardiovascular: Cardiovascular: Denies chest pain, Denies irregular heart rhythm and Denies dyspnea Respiratory: Respiratory: Reports cough and Denies dyspnea Gastrointestinal: Gastrointestinal: Denies abdominal pain, Denies melena, Denies hematochezia, Denies diarrhea, Denies nausea and Denies vomiting Musculoskeletal: Musculoskeletal: Denies back pain, Denies myalgias and Denies arthralgias Integumentary/Breasts: Skin/Breast: Denies pruritus and Denies rash Neurologic: Denies headache(s), Denies loss of vision and Denies weakness Psychiatric: Psychiatric: Reports no additional psychiatric complaints [facility] Past Medical History Medical History (Updated 10/06/22 @ 16:20 by Emily Beatty, CHELSEA) Androgenic alopecia Conn syndrome Encounter for postoperative care Gout Hammertoe of second toe of right foot Hypertriglyceridemia Internal hemorrhoids Metabolic encephalopathy Peripheral arterial occlusive disease Right leg DVT Rotator cuff tear arthropathy of left shoulder (~2007) Statin intolerance Surgical History Surgical History H/O breast surgery Left breast biopsy History of hemorrhoidectomy History of hernia repair History of hysterectomy (~1992) 1992 Hx of cholecystectomy (~2013) Family History Family History Grandparent Diabetes mellitus Family history of glaucoma Hypertension Family history of cardiovascular disease Cerebrovascular accident Father Family history of glaucoma Hypertension Family history of elevated blood lipids Cerebrovascular accident Carcinoma of colon Family history of type 2 diabetes mellitus Sibling Family history of glaucoma Hypertension Family history of elevated blood lipids Mother Hypertension Other Family history of gout Social History Social History Smoking packs
== END 2022-10-06 16:25 | disposition home or self-care (01) ==
PROVIDERS: Emergency Provider Nurse Practitioner Family; PCP Family Medicine
DX: J06.9 Acute upper respiratory infection, unspecified (principal); Z87.891 Personal history of nicotine dependence
CPT/HCPCS: 87081; 87880; 99213; G0463

== ENCOUNTER 2023-02-25 15:17 | Emergency (ER) | payer MEDICARE, SELFPAY ==
--- NOTE | ~2023-02-25 | US_ITS ---
EXAMINATION: US venous doppler LE RT DATE: 02/25/2023 16:22 INDICATION: Right lower limb swelling TECHNIQUE: Marroquin scale images without and with compression and Doppler images of the right lower extre mity veins were obtained. COMPARISON: 08/05/2022 FINDINGS: The right common femoral vein, profunda femoral vein, femoral vein, popliteal vein, peronea l trunk, posterior tibial veins, and greater saphenous vein are patent. IMPRESSION: 1. Patent right lower extremity veins. No evidence of deep venous thrombosis. Reviewed, dictated and finalized at location L.
--- NOTE | ~2023-02-25 | XR_ITS ---
EXAMINATION: XR chest 1V portable INDICATION: Shortness of breath, lower limb swelling TECHNIQUE: Portable AP chest at 1623 hours COMPARISON: 08/12/2013 FINDINGS: There is mild atelectasis of the left lung base. No pleural effusion or pneumothorax. The c ardiomediastinal silhouette is normal. IMPRESSION: 1. Mild atelectasis of the left lung base. Reviewed, dictated and finalized at location L.
[2023-02-25 15:19] VITALS: BP 162/85; PULSE 95; RESP 20; TEMP 37; O2SAT 100
[2023-02-25 16:33] VITALS: PULSE 93; RESP 18; O2SAT 100
--- NOTE | 2023-02-25 17:45 | ED.EXTPRO ---
HPI - Extremity Problem General Chief complaint: Extremity Problem,Nontraumatic Stated complaint: right leg swelling Time Seen by Provider: 02/25/23 16:00 History of Present Illness HPI Narrative: 9-year-old female presented the emergency department for evaluation of right lower leg swelling. Patient does have prior history of DVT and was referred by her primary care physician for rule out for DVT. Patient is currently taking Eliquis. Patient does have prior history of DVT. Patient states she did have a recent outpatient work-up for her lower extremity swelling. Related Data Home Medications Medication Instructions Recorded Confirmed brimonidine 0.2 % eye drops 1 drop ophthalmic (eye) BID 06/03/19 02/14/23 timolol 0.5 % eye drops 1 drop ophthalmic (eye) Q12H 06/03/19 02/14/23 meloxicam 15 mg tablet 15 mg PO DAILY 08/16/22 02/14/23 lisinopril 20 mg tablet 20 mg PO DAILY 09/25/22 02/14/23 Allergies Allergy/AdvReac Type Severity Reaction Status Date / Time No Known Allergies Allergy Verified 02/14/23 10:47 Review of Systems Review of Systems: All systems reviewed & are unremarkable except as noted in HPI and below PMFSH Past Medical History Medical History Androgenic alopecia Conn syndrome Encounter for postoperative care Gout Hammertoe of second toe of right foot Hypertriglyceridemia Internal hemorrhoids Metabolic encephalopathy Peripheral arterial occlusive disease Right leg DVT Rotator cuff tear arthropathy of left shoulder (~2007) Statin intolerance Surgical History Surgical History H/O breast surgery Left breast biopsy History of hemorrhoidectomy History of hernia repair History of hysterectomy (~1992) 1992 Hx of cholecystectomy (~2013) Family History Family History Grandparent Diabetes mellitus Family history of glaucoma Hypertension Family history of cardiovascular disease Cerebrovascular accident Father Family history of glaucoma Hypertension Family history of elevated blood lipids Cerebrovascular accident Carcinoma of colon Family history of type 2 diabetes mellitus Sibling Family history of glaucoma Hypertension Family history of elevated blood lipids Mother Hypertension Other Family history of gout Social History Social History Smoking packs per day: 1 Smoking cigarettes per day: 20.0 Years smoked: 20 Smoking pack-years: 20.00 Smoking status: Former smoker Tobacco type: cigarettes Second hand tobacco smoke exposure: No Smoking end date: 07/14/09 Alcohol intake: never Substance use: never Substance use type: does not use Lack of Transportation: No Lack of Food: Never True Current Housing: I Have Housing Concerned About Future Housing: No Difficulty Paying Gas/Electric Bills: No Difficulty Paying for Meds: No Currently Unemployed: No Education: Bachelor's Degree Difficulty w/ Childcare or Family Care: No Living arrangements: with family Gender identity (if verbalized by the patient): Female Spiritual care concerns: No Exam Narrative: APPEARANCE: Well appearing, no pain, no distress, well-nourished. HEAD: normocephalic, atraumatic. EYES: PERRLA/EOMI, conjunctivae clear. NOSE: Normal no drainage NECK: Supple. No adenopathy, no masses. RESPIRATORY: Airway patent, respirations nonlabored. Clear to auscultation bilaterally, no rales, rhonchi, wheezing. CARDIOVASCULAR: Regular rate and rhythm without murmurs rubs or gallops. ABDOMINAL: Soft, nontender, nondistended, normal bowel sounds MUSCULOSKELETAL: Moves all extremities. Strength/ROM intact, bilateral lower extremity BK worse on right than left, No calf tenderness. NEURO: Alert. Cranial nerves II through XII intact. Good gait. Good coordination SKI
[2023-02-25 17:47] VITALS: PULSE 86; RESP 16; O2SAT 100
[2023-02-25 18:00] VITALS: PULSE 85; RESP 23
[2023-02-25] MEDS: CEPHALEXIN 500 MG CAPSULE PO (18:06)
== END 2023-02-25 18:57 | disposition home or self-care (01) ==
PROVIDERS: Emergency Provider Emergency Medicine; PCP Family Medicine
DX: L03.115 Cellulitis of right lower limb (principal); E78.1 Pure hyperglyceridemia; G93.41 Metabolic encephalopathy; I77.9 Disorder of arteries and arterioles, unspecified; M10.9 Gout, unspecified; Z86.718 Personal history of other venous thrombosis and embolism; Z87.891 Personal history of nicotine dependence; Z90.710 Acquired absence of both cervix and uterus; Z90.49 Acquired absence of other specified parts of digestive tract
CPT/HCPCS: 71045; 93971; 99284; A9270

== ENCOUNTER 2023-05-02 13:34 | Outpatient (CLI) | payer MEDICARE, SELFPAY ==
[2023-05-02 15:17] LABS: Alanine Aminotransferase 21 U/L (6-35); Albumin Level 3.9 g/dL (3.5-5.1); Alkaline Phosphatase 72 U/L (38-126); Anion Gap 10 mmol/L (8-16); Aspartate Amino Transferase 31 U/L (14-36); Bilirubin,Total 0.6 mg/dL (0.2-1.3); Blood Urea Nitrogen 18 mg/dL (7-17); Calcium 8.8 mg/dL (8.4-10.2); Carbon Dioxide 22 mmol/L (22-30); Chloride 106 mmol/L (98-107); Estimated Glomerular Filt Rate > 60; Glucose 86 mg/dL (65-110); Potassium 4.3 mmol/L (3.4-5.0); Sodium 138 mmol/L (137-145)
[2023-05-02 16:36] LABS: Hemoglobin A1C 6.6 % (<5.7)
== END 2023-05-02 13:35 | disposition home or self-care (01) ==
PROVIDERS: PCP Family Medicine; Visit Provider Family Medicine
DX: E11.65 Type 2 diabetes mellitus with hyperglycemia (principal); E53.8 Deficiency of other specified B group vitamins; G93.41 Metabolic encephalopathy; N17.9 Acute kidney failure, unspecified
CPT/HCPCS: 36415; 80053; 83036

== ENCOUNTER 2023-12-10 14:46 | Outpatient (CLI) | payer MEDICARE, SELFPAY ==
[2023-12-10 19:34] LABS: Basophils Absolute Auto 0.1 K/mm3 (0.0-0.1); Basophils Percent Auto 0.6 % (0.2-1.2); Eosinophils Absolute Auto 0.7 K/mm3 (0-0.3); Hematocrit 36.1 % (37.0-47.0); Hemoglobin 9.9 g/dL (12.0-15.0); Immature Granulocyte Absolute 0.04 K/mm3 (0.00-0.031); Immature Granulocyte Percent A 0.4 % (0-0.5); Mean Corpuscular HGB Conc 27.4 g/dl (32-36); Mean Corpuscular Hemoglobin 20.4 pg (26-34); Mean Corpuscular Volume 74.3 fl (80-100); Mean Platelet Volume 11.1 fl (7.4-10.4); Monocytes Absolute Auto 0.9 K/mm3 (0.1-0.6); Monocytes Percent Auto 9.2 % (2.6-8.5); Neutrophils Absolute Auto 6.6 K/mm3 (1.3-6.7); Neutrophils Percent Auto 65.8 % (45.5-73.1); Platelet Count Result 334 k/mm3 (150-375); Red Blood Count 4.86 M/mm3 (4.2-5.4)
[2023-12-10 19:51] LABS: Iron 28 ug/dL (37-170)
[2023-12-10 19:57] LABS: Hypochromasia 1+; Platelet Estimate Adequate (Adequate)
[2023-12-10 19:58] LABS: Ovalocytes 1+; Poikilocytosis 1+; Schistocytes None Seen
[2023-12-10 20:01] LABS: Percent Iron Saturation 6 % (20-50)
[2023-12-10 20:09] LABS: Vitamin D 25 Hydroxy 27.5 ng/mL
[2023-12-10 20:16] LABS: Thyroid Stimulating Hormone Reflex 0.763 uIU/mL (0.465-4.68)
[2023-12-10 20:28] LABS: Ferritin 6.69 ng/mL (11.1-264)
[2023-12-10 20:39] LABS: Alanine Aminotransferase 28 U/L (6-35); Albumin Level 4.6 g/dL (3.5-5.1); Alkaline Phosphatase 104 U/L (38-126); Anion Gap 11 mmol/L (4-12); Aspartate Amino Transferase 38 U/L (14-36); Bilirubin,Total 0.5 mg/dL (0.2-1.3); Blood Urea Nitrogen 21 mg/dL (7-17); Calcium 9.6 mg/dL (8.4-10.2); Carbon Dioxide 23 mmol/L (22-30); Chloride 106 mmol/L (98-107); Estimated Glomerular Filt Rate 55; Glucose 137 mg/dL (65-110); Potassium 4.6 mmol/L (3.4-5.0); Sodium 140 mmol/L (137-145)
== END 2023-12-10 14:47 | disposition home or self-care (01) ==
LOC: ANHGOSHLAB 14:48
PROVIDERS: PCP Family Medicine; Visit Provider Nurse Practitioner Family
DX: E55.9 Vitamin D deficiency, unspecified (principal); E53.8 Deficiency of other specified B group vitamins; R53.83 Other fatigue; E79.0 Hyperuricemia without signs of inflammatory arthritis and tophaceous disease
CPT/HCPCS: 36415; 80053; 82306; 82607; 82728; 83540; 83550; 84443; 85025

== ENCOUNTER 2023-12-16 10:29 | Outpatient (NON) | payer MEDICARE, SELFPAY ==
[2023-12-16 14:37] LABS: IFOB Positive Control Positive; Immunochemical Fecal Occult Bl Negative (N)
== END 2023-12-16 10:30 | disposition home or self-care (01) ==
LOC: ANHGOSHLAB 10:31
PROVIDERS: PCP Family Medicine; Visit Provider Family Medicine
DX: D50.9 Iron deficiency anemia, unspecified (principal)
CPT/HCPCS: 82274

== ENCOUNTER 2024-02-05 12:05 | Outpatient (CLI) | payer MEDICARE, SELFPAY ==
[2024-02-05 12:23] LABS: Basophils Percent Auto 0.6 % (0.2-1.2); Eosinophils Absolute Auto 0.9 K/mm3 (0-0.3); Eosinophils Percent Auto 13.1 % (0-4.4); Hematocrit 42.3 % (37.0-47.0); Hemoglobin 12.2 g/dL (12.0-15.0); Immature Granulocyte Absolute 0.02 K/mm3 (0.00-0.031); Immature Granulocyte Percent A 0.3 % (0-0.5); Lymphocytes Percent Auto 17.2 % (18.3-44.2); Mean Corpuscular HGB Conc 28.8 g/dl (32-36); Mean Corpuscular Hemoglobin 23.4 pg (26-34); Mean Corpuscular Volume 81.2 fl (80-100); Monocytes Absolute Auto 0.7 K/mm3 (0.1-0.6); Monocytes Percent Auto 9.8 % (2.6-8.5); Neutrophils Absolute Auto 4.1 K/mm3 (1.3-6.7); Platelet Count Result 257 k/mm3 (150-375); Red Blood Count 5.21 M/mm3 (4.2-5.4); Red Cell Distribution Width 24.1 % (11.5-14.5)
[2024-02-05 12:30] LABS: Anisocytosis 1+; Microcytosis 1+ (NORMAL); Ovalocytes 1+; Platelet Estimate Adequate (Adequate); Poikilocytosis 1+; Schistocytes None Seen
[2024-02-05 13:22] LABS: Alanine Aminotransferase 30 U/L (6-35); Albumin Level 4.4 g/dL (3.5-5.1); Alkaline Phosphatase 104 U/L (38-126); Anion Gap 13 mmol/L (4-12); Aspartate Amino Transferase 34 U/L (14-36); Bilirubin,Total 0.4 mg/dL (0.2-1.3); Blood Urea Nitrogen 16 mg/dL (7-17); Calcium 9.1 mg/dL (8.4-10.2); Carbon Dioxide 24 mmol/L (22-30); Chloride 102 mmol/L (98-107); Estimated Glomerular Filt Rate > 60; Glucose 101 mg/dL (65-110); Lactate Dehydrogenase 198 U/L (120-246); Sodium 139 mmol/L (137-145)
[2024-02-05 14:30] LABS: Folic Acid > 20.0 ng/mL (2.76->20)
[2024-02-05 16:46] LABS: Iron 52 ug/dL (37-170)
[2024-02-05 17:05] LABS: Percent Iron Saturation 14 % (20-50)
[2024-02-09 15:39] LABS: Methylmalonic Acid 139 nmol/L (69-390)
[2024-02-13 12:24] LABS: Soluble Transferrin Receptor 3.19 mg/L (0.76-1.76)
== END 2024-02-05 12:06 | disposition home or self-care (01) ==
LOC: ANHLAB 12:07
PROVIDERS: PCP Family Medicine; Visit Provider Nurse Practitioner Family
DX: D50.9 Iron deficiency anemia, unspecified (principal)
CPT/HCPCS: 36415; 80053; 82607; 82728; 82746; 83540; 83550; 83615; 83921; 84238; 85025

== ENCOUNTER 2024-02-25 05:56 | Day surgery (SDC) | payer MEDICARE, SELFPAY ==
[2024-02-20 09:52] VITALS: BMI 23.9
[2024-02-20 11:09] VITALS: BMI 23.5
[2024-02-25 07:08] LABS: Glucose Point of Care 128 mg/dl (65-105)
[2024-02-25 07:14] VITALS: BP 105/57; PULSE 90; RESP 18; TEMP 36.2; O2SAT 99; BMI 22.9
--- NOTE | 2024-02-25 07:15 | PM.HPGS ---
History of Present Illness History of Present Illness Consent: Risks, benefits, and alternatives have been discussed and questions answered. Patient agrees to proceed with procedure. Chief complaint: Iron Deficiency Anemia,unspecified. Narrative: Michelle Colon is a 73 year old female presents for colonoscopy. Patient recently found to have a iron deficiency anemia. She denies any bleeding. Her bowel habits are normal. Patient denies abdominal pain. Does have past medical history of colon polyps. Her father had colon cancer. Previous screening colonoscopies been performed regularly. Most recent colonoscopy was 3 years ago. Review of Systems Review of Systems: All systems reviewed & are unremarkable except as noted in HPI and below PMFSH Past Medical History Medical History Androgenic alopecia Conn syndrome Encounter for postoperative care Gout Hammertoe of second toe of right foot Hypertriglyceridemia Internal hemorrhoids Metabolic encephalopathy Peripheral arterial occlusive disease Right leg DVT Rotator cuff tear arthropathy of left shoulder (~2007) Statin intolerance Surgical History Surgical History H/O breast surgery Left breast biopsy H/O cataract removal with insertion of prosthetic lens History of hemorrhoidectomy History of hernia repair History of hysterectomy (~1992) 1992 Hx of cholecystectomy (~2013) Family History Family History Grandparent Diabetes mellitus Family history of glaucoma Hypertension Family history of cardiovascular disease Cerebrovascular accident Father Family history of glaucoma Hypertension Family history of elevated blood lipids Cerebrovascular accident Carcinoma of colon Family history of type 2 diabetes mellitus Sibling Family history of glaucoma Hypertension Family history of elevated blood lipids Mother Hypertension Other Family history of gout Social History Social History Smoking packs per day: 1 Smoking cigarettes per day: 20.0 Years smoked: 20 Smoking pack-years: 20.00 Smoking status: Former smoker Tobacco type: cigarettes Second hand tobacco smoke exposure: No Smoking end date: 07/14/09 Alcohol intake: never Substance use: never Substance use type: does not use Lack of Transportation: No Lack of Food: Never True Current Housing: I Have Housing Concerned About Future Housing: No Difficulty Paying Gas/Electric Bills: No Difficulty Paying for Meds: No Currently Unemployed: No Education: Associate Degree Difficulty w/ Childcare or Family Care: No Living arrangements: with family Gender identity (if verbalized by the patient): Female Spiritual care concerns: No Meds Home Medications and Allergies Home Medications Medication Instructions Recorded Confirmed Type brimonidine 0.2 % eye drops 1 drop ophthalmic (eye) BID 06/03/19 02/20/24 History lancets (OneTouch UltraSoft #100 ea 10/04/20 09/03/23 Rx Lancets) blood sugar diagnostic (Accu-Chek #100 ea 02/01/22 09/03/23 Rx Eileen Plus test strips) metformin 500 mg tablet,extended See Rx Instructions .Route 02/14/23 02/25/24 Rx release 24 hr .COMPLEX #360 tabs latanoprost 0.005 % eye drops 1 drp ophthalmic (eye) DAILY #7.5 02/17/23 02/20/24 Rx mL pen needle, diabetic 31 gauge x #100 ea 02/25/23 09/03/23 Rx 3/16 (BD Ultra-Fine Mini Pen Needle) fluoxetine 20 mg capsule (Prozac) 20 mg PO DAILY #90 caps 03/03/23 02/25/24 Rx lisinopril 20 mg tablet 20 mg PO DAILY #90 tabs 06/18/23 02/25/24 Rx rosuvastatin 5 mg tablet (Crestor) 5 mg PO DAILY #90 tabs 08/22/23 02/20/24 Rx timolol maleate 0.25 % eye drops drp EACH EYE 09/03/23 09/03/23 History quetiapine 25 mg tablet (Seroquel) 50 mg PO DAILY #180 tabs 0
[2024-02-25] MEDS: LACTATED RINGERS 1,000 ML 150 ML IV CONT (07:30)
--- NOTE | 2024-02-25 07:43 | WPDANESEPPF ---
Anes - Initial Pre Proc Eval Procedure: Operation Date: 02/25/24 08:00 Proposed Procedures p Diagnostic Colonoscopy - Stef Burr MD Date/Time: 02/25/24 07:43 Surgeon: Stef Burr MD Pre Op Diagnosis: Iron Deficiency Anemia,unspecified. Patient Data Age: 73 Gender: F Height: 1.68 m Weight: 64.6 kg Last Vital Signs Temp 36.2 C L 02/25/24 07:14 Pulse 90 02/25/24 07:14 Resp 18 02/25/24 07:14 BP 105/57 L 02/25/24 07:14 Pulse Ox 99 02/25/24 07:14 O2 Del Method Room Air 02/25/24 07:14 Allergies Allergy/AdvReac Type Severity Reaction Status Date / Time No Known Allergies Allergy Verified 02/25/24 06:57 Home Medications Medication Instructions Recorded Confirmed Type brimonidine 0.2 % eye drops 1 drop ophthalmic (eye) BID 06/03/19 02/20/24 History lancets (OneTouch UltraSoft #100 ea 10/04/20 09/03/23 Rx Lancets) blood sugar diagnostic (Accu-Chek #100 ea 02/01/22 09/03/23 Rx Eileen Plus test strips) metformin 500 mg tablet,extended See Rx Instructions .Route 02/14/23 02/25/24 Rx release 24 hr .COMPLEX #360 tabs latanoprost 0.005 % eye drops 1 drp ophthalmic (eye) DAILY #7.5 02/17/23 02/20/24 Rx mL pen needle, diabetic 31 gauge x #100 ea 02/25/23 09/03/23 Rx 3/16 (BD Ultra-Fine Mini Pen Needle) fluoxetine 20 mg capsule (Prozac) 20 mg PO DAILY #90 caps 03/03/23 02/25/24 Rx lisinopril 20 mg tablet 20 mg PO DAILY #90 tabs 06/18/23 02/25/24 Rx rosuvastatin 5 mg tablet (Crestor) 5 mg PO DAILY #90 tabs 08/22/23 02/20/24 Rx timolol maleate 0.25 % eye drops drp EACH EYE 09/03/23 09/03/23 History quetiapine 25 mg tablet (Seroquel) 50 mg PO DAILY #180 tabs 12/01/23 02/20/24 Rx ferrous sulfate 325 mg (65 mg 325 mg PO BID #200 tabs 12/19/23 02/20/24 Rx iron) tablet lorazepam 1 mg tablet 1 mg PO TID PRN agitation #90 tabs 02/02/24 02/20/24 Rx dapagliflozin propanediol 10 mg 10 mg PO DAILY #90 tabs 02/09/24 02/20/24 Rx tablet (Farxiga) sodium,potassium,mag sulfates 17.5 See Rx Instructions PO .COMPLEX 02/20/24 02/20/24 Rx gram-3.13 gram-1.6 gram oral soln #354 mL (Suprep Bowel Prep Kit) Laboratory Tests 02/25/24 07:02 POC Capillary Glucose 128 H mg/dl (65-105) Patient hx anesthesia problems: none Family hx anesthesia problems: none Results Review: All pre-operative results and documents have been reviewed as part of the pre-operative evaluation. [facility] Past Medical History Medical History Androgenic alopecia Conn syndrome Encounter for postoperative care Gout Hammertoe of second toe of right foot Hypertriglyceridemia Internal hemorrhoids Metabolic encephalopathy Peripheral arterial occlusive disease Right leg DVT Rotator cuff tear arthropathy of left shoulder (~2007) Statin intolerance Surgical History Surgical History H/O breast surgery Left breast biopsy H/O cataract removal with insertion of prosthetic lens History of hemorrhoidectomy History of hernia repair History of hysterectomy (~1992) 1992 Hx of cholecystectomy (~2013) Family History Family History Grandparent Diabetes mellitus Family history of glaucoma Hypertension Family history of cardiovascular disease Cerebrovascular accident Father Family history of glaucoma Hypertension Family history of elevated blood lipids Cerebrovascular accident Carcinoma of colon Family history of type 2 diabetes mellitus Sibling Family history of glaucoma Hypertension Family history of elevated blood lipids Mother Hypertension Other Family history of gout Social History Social History Smoking packs per day: 1 Smoking cigarettes per day: 20.0 Years smoked: 20 Smoking pack-years: 20.00 Smoking status: Former smoker Tobacco type:
[2024-02-25 08:12] VITALS: BP 92/48; PULSE 67; RESP 15; O2SAT 97
[2024-02-25 08:22] VITALS: BP 85/50; PULSE 62; RESP 16; O2SAT 98
[2024-02-25 08:32] VITALS: BP 96/59; PULSE 64; RESP 16; O2SAT 98
--- NOTE | 2024-02-25 08:40 | WPDANESPN ---
Anes - Prog Note Post-Op Date/Time: 02/25/24 08:40 Cardiovascular status: normal Respiratory status: normal Airway patency: baseline Mental status: baseline Post-Op hydration status: normal Vital Signs: Last Vital Signs Temp 36.2 C L 02/25/24 07:14 Pulse 62 02/25/24 08:22 Resp 16 02/25/24 08:22 BP 85/50 L 02/25/24 08:22 Pulse Ox 98 02/25/24 08:22 O2 Del Method Room Air 02/25/24 08:22 Pain Score (VAS): 0/10 I/O: Intake & Output 02/24/24 02/25/24 02/25/24 23:59 07:59 15:59 Intake Total 400 Balance 400 02/25/24 07:02 POC Capillary Glucose 128 H Patient Feedback: Patient satisfied with anesthetic care.
== END 2024-02-25 08:57 | disposition home or self-care (01) ==
PROVIDERS: PCP Family Medicine; Visit Provider Internal Medicine Gastroenterology
PROC: 0DJD8ZZ Inspection of Lower Intestinal Tract, Via Natural or Artificial Opening Endoscopic (ICD-10-PCS; CPT 45378; principal; 2024-02-25 08:00)
DX: Z80.0 Family history of malignant neoplasm of digestive organs (principal); Z86.010 Personal history of colon polyps; D50.9 Iron deficiency anemia, unspecified; K57.30 Diverticulosis of large intestine without perforation or abscess without bleeding; K64.8 Other hemorrhoids
CPT/HCPCS: 45378; G0105

== ENCOUNTER 2024-04-27 10:57 | Outpatient (CLI) | payer MEDICARE, SELFPAY ==
[2024-04-27 19:24] LABS: Basophils Absolute Auto 0.1 K/mm3 (0.0-0.1); Basophils Percent Auto 0.7 % (0.2-1.2); Eosinophils Absolute Auto 0.5 K/mm3 (0-0.3); Eosinophils Percent Auto 6.5 % (0-4.4); Hematocrit 49.8 % (37.0-47.0); Hemoglobin 15.5 g/dL (12.0-15.0); Immature Granulocyte Absolute 0.02 K/mm3 (0.00-0.031); Immature Granulocyte Percent A 0.2 % (0-0.5); Lymphocytes Absolute Auto 1.49 K/mm3 (0.9-3.2); Lymphocytes Percent Auto 18.5 % (18.3-44.2); Mean Corpuscular HGB Conc 31.1 g/dl (32-36); Mean Corpuscular Hemoglobin 27.3 pg (26-34); Mean Corpuscular Volume 87.7 fl (80-100); Mean Platelet Volume 12.3 fl (7.4-10.4); Monocytes Absolute Auto 0.7 K/mm3 (0.1-0.6); Monocytes Percent Auto 9.1 % (2.6-8.5); Neutrophils Absolute Auto 5.2 K/mm3 (1.3-6.7); Platelet Count Result 220 k/mm3 (150-375); Red Blood Count 5.68 M/mm3 (4.2-5.4); White Blood Count 8.1 K/mm3 (4.5-10.0)
[2024-04-27 19:34] LABS: Alanine Aminotransferase 38 U/L (6-35); Albumin Level 4.5 g/dL (3.5-5.1); Alkaline Phosphatase 101 U/L (38-126); Anion Gap 16 mmol/L (4-12); Aspartate Amino Transferase 47 U/L (14-36); Bilirubin,Total 0.5 mg/dL (0.2-1.3); Blood Urea Nitrogen 16 mg/dL (7-17); Calcium 9.7 mg/dL (8.4-10.2); Carbon Dioxide 22 mmol/L (22-30); Chloride 101 mmol/L (98-107); Cholesterol 119 mg/dL (0-200); Estimated Glomerular Filt Rate 55; Glucose 95 mg/dL (65-110); HDL Direct 37 mg/dL; Potassium 4.9 mmol/L (3.4-5.0); Sodium 139 mmol/L (137-145); Triglycerides 251 mg/dL (<150)
[2024-04-27 19:45] LABS: LDL Cholesterol Direct 40 mg/dL
[2024-04-27 19:53] LABS: Thyroid Stimulating Hormone Reflex < 0.015 uIU/mL (0.465-4.68)
[2024-04-27 20:42] LABS: Free T4 Free Thyroxine Reflex 0.89 ng/dL (0.78-2.19)
[2024-04-27 21:02] LABS: Hemoglobin A1C 6.3 % (<5.7)
[2024-04-27 21:26] LABS: Total Triiodothyronine (T3) 1.03 NG/ML (0.97-1.69)
== END 2024-04-27 10:58 | disposition home or self-care (01) ==
PROVIDERS: PCP Family Medicine; Visit Provider Family Medicine
DX: E78.5 Hyperlipidemia, unspecified (principal); E11.9 Type 2 diabetes mellitus without complications
CPT/HCPCS: 36415; 80053; 80061; 83036; 84439; 84443; 84480; 85025

== ENCOUNTER 2024-08-23 09:40 | Outpatient (CLI) | payer MEDICARE, SELFPAY ==
--- OUTSIDE RECORDS SUMMARY | 2024-08-23 10:20 | XMS_ITS | Patient Health Summary ---
Author Organization [facility] Address [address] [place] [address] Care Team Providers Care Restaurant Manager Name Role Phone Abhishek King MD Primary Care Provider [phone] Note from [facility],non-owned Affiliates and Associated Physician Practices is amultiple site organization consisting of ambulatory clinics and hospital sitesin [place], [place], [place] and [place]. This disclosure is being madepursuant to the Care Everywhere program and may not contain all information available regarding this patient. Last updated 18.[facility] Allergies No known active allergies Medications * Be aware that medications may not be up to date on this document. Alwaysverify current medications with the patient. * brimonidine (ALPHAGAN) 0.2 % ophthalmic solution(Started 12/29/2020) Instill 1 drop into both eyes 2 times daily * calcipotriene (DOVONEX) 0.005 % cream(Started 12/19/2020) * carvedilol (COREG) 25 MG tablet(Started 03/02/2021) * RESTASIS MULTIDOSE 0.05 % ophthalmic suspension(Started 01/05/2021) Instill 1 drop into both eyes 2 times daily * FLUoxetine (PROZAC) 20 MG capsule(Started 01/15/2021) Take 20 mg by mouth once daily * hydrocortisone (HYTONE) 2.5 % ointment(Started 11/10/2020) APPLY TO AFFECTED AREAS TWICE A DAY FOR 2 WEEKS THEN ONLY TWICE A DAY ON WEEKENDS * ketoconazole (NIZORAL) 2 % shampoo(Started 11/23/2020) USE SHAMPOO DAILY FOR TWO WEEKS THEN TWICE PER WEEK. * latanoprost (XALATAN) 0.005 % ophthalmic solution(Started 01/22/2021) Instill 1 drop into both eyes at bedtime * lisinopril (PRINIVIL; ZESTRIL) 20 MG tablet(Started 03/02/2021) * meloxicam (MOBIC) 15 MG tablet(Started 01/01/2021) Take 15 mg by mouth once daily * metFORMIN ER 24hr (GLUCOPHAGE XR) 500 MG tablet(Started 02/17/2021) TAKE 1 TABLET BY MOUTH EVERY MORNING AND TAKE 2 TABLETS IN THE EVENING * metroNIDAZOLE (METROGEL) 0.75 % gel(Started 12/02/2020) APPLY TO FACE ONCE A DAY * mometasone (ELOCON) 0.1 % cream(Started 10/24/2020) APPLY TO EAR CANAL DAILY FOR ITCHING * rosuvastatin (CRESTOR) 10 MG tablet(Started 09/13/2020) Take 10 mg by mouth once daily * spironolactone (ALDACTONE) 50 MG tablet(Started 01/16/2021) Take 50 mg by mouth 2 times daily * timolol maleate (TIMOPTIC) 0.25 % ophthalmic solution(Started 12/29/2020) Instill 1 drop into both eyes 2 times daily * tobramycin-dexAMETHasone (TOBRADEX) 0.3-0.1 % ophthalmic ointment(Started 03/02/2021) Instill into both eyes at bedtime 11 refills by 03/02/2022 Active Problems Problem Noted Date Diagnosed Date 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 (FLUZONE; FLULAVAL; FLUARIX; AFLURIA QUADRIVALENT; 6MO+), 0.5 ML (IIV4)(Given 05/01/2018) * iNFLUENZA VACCINE, RECOM-APPLE, QUADR. (FLUBLOCK QUADRIVALENT; 18Y+) (RIV4)(Given 05/05/2020, 04/29/2019) Social History Tobacco Use Types Packs/Day Years Used Date Smoking Tobacco: Never Smokeless Tobacco: Never Alcohol Use Standard Drinks/Week Comments Yes 0 (1 standard drink = 0.6 oz pur e alcohol) Socially every few months Sex and Gender Information Value Date Recorded Sex Assigned at Not on file Gender Identity Not on file Sexual Orientation Not on file Procedures * OPH OCT TEST SLU(Performed 03/02/2021) Performed for Blurred vision, bilateral Results * OCT (03/02/2021 2:42 PM CDT) Anatomical Region Laterality Modality Other 03/02/2021 2:42 PM CDT Lucian Howard MD [facility]ALMOLOGY [facility] Care Teams Restaurant Manager Relationship Specialty Start Date End Date Abhishek King MD [address] [place] [phone] PCP - General 01/12/21
--- OUTSIDE RECORDS SUMMARY | 2024-08-23 10:20 | XMS_ITS ---
Author Organization [facility] Address [address] [place] [address] Care Team Providers Care Road Hogger Operator Name Role Phone Verito Fields Unavailable [phone] Abhishek King MD Unavailable Unavailable zzzzMigration, zzzzProvider Unavailable Unav ailable REASON FOR VISIT EMR-Toy Encounters Encounter Location Date Provider Diagnosis [facility] [address] [place] [address] 05/03/2023 zzzzProvider zzzzMigration Plan Of Treatment Medication Medication Name Sig Start Date Stop Date Notes Allopurinol 100 MG take 1 tablet (100 m g) by oral route once daily for 30 days Oral 1 for 30 08/13/2019 11/11/2019 Meloxicam 15 MG take 1 tablet (15 mg ) by oral route once daily for 30 days Oral 1 for 30 07/29/2019 09/27/2019 Progress Notes * THOM[birth year]Michel[birth year]DOB:[birth year] (73 yo F)Acc No.[id number]:05/03/2023 Patient: Michelle MCKEE Mo :1950 A ge:72 Y S ex:Female Address:[address] [place] [id number] * Refills Stop Allopurinol Tablet, 100 MG, Oral, 30, take 1 tablet (100 mg) by oral route once daily for 30 days, 1, 30 Stop Meloxicam Tablet, 15 MG, Oral, 30, take 1 tablet (15 mg) by oral route once daily for 30 days, 1, 30 Subjective: * Chief Complaints: * E MR-Toy * Medical History: * Surgical History: * Hospitalization/Major Diagno stic Procedure: * Medications: Objective: * Vitals: * Physical Examination: Assessment: Plan: * Treatment: * Procedure Codes: * * Date:
--- OUTSIDE RECORDS SUMMARY | 2024-08-23 10:20 | XMS_ITS | Patient Health Record ---
Author Organization [facility] Address [address] [place] [address] Care Team Providers Care Evp Business Development Name Role Phone Verito Fields Unavailable [phone] Abhishek King MD Unavailable Unavailable Allergies No Known Allergies Reason For Referral No Information Medications Medication SIG (Take, Route, Frequency, Duration) Notes Start Date End Date Status Carvedilol 6.25 MG take 1 tablet (6.25 mg) by oral route 2 times per day with food Oral 2 Active Latanoprost 0.005 % instill 1 drop into right eye by ophthalmic route once daily in the evening Ophthalmic 1 Active Meloxicam 15 MG TAKE 1 TABLET BY NATHANIEL TH EVERY DAY Oral 09/27/2019 Active PROzac 20 MG take 1 capsule (20 m g) by oral route once daily in the evening Oral 1 Active Simvastatin 10 MG take 1 tablet (10 mg ) by oral route once daily in the evening Oral 1 Active Betimol 0.5 % instill 1 drop into affected eye(s) by ophthalmic route 2 times per day Ophthalmic 2 Active Brimonidine Tartrate 0.2 % instill 1 abhi p into affected eye(s) by ophthalmic route every 12 hours Ophthalmic 3 Active metFORMIN HCl 500 MG 500mg in morning, 1 000mg in evening Oral Active Plan Of Treatment No Information Insurance Providers Payer Name Payer Address Payer Phone Subscriber Number Group Number Insured Name Patient Relationship to Insured Coverage Start Date Coverage End Date DO NOT USE AR [id number] Isaiah Michelle Self - patient is the insured [facility] [address] [place] [address] [phone] [id number] Isaiah, Michelle Self - patient is the insured Medical (General) History Surgical History Surgery Date(Month/Year) rotator cuff repair; 2019-07-24 Hysterectomy; 2019-07-24 cholecystectomy; 2019-07-24
--- OUTSIDE RECORDS SUMMARY | 2024-08-23 10:20 | XMS_ITS | Encounter Summary ---
Author Organization [facility] Address [address] [place] [address] Care Team Providers Care Curve Cleaner Name Role Phone Abhishek King MD Primary Care Provider [phone] Julio De Luna MD Unavailable [phone] Abhishek King MD Primary Care Provider [phone] Encounter Details Date Type Department Care Team (Late st Contact Info) Description 02/02/2020 Orders Only [facility] Health Information Management [address] [place] [address] Scanning, Provider Social History Tobacco Use Types Packs/Day Years Used Date Smoking Tobacco: Never Smokeless Tobacco: Never Comments Unknown Sex and Gender Information Value Date Recorded Sex Assigned at Not on file Legal Sex Female 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 Gender Identity Female 04/21/2020 12:12 PM CDT Sexual Orientation Straight 04/21/2020 12 :12 PM CDT documented as of this encounter Plan of Treatment Not on file documented as of this encounter Procedures Procedure Name Priority Date/Time Associated Diagnosis Comments SCAN - OTHER ORDERS 02/02/2020 documented in this encounter Results * SCAN - OTHER ORDERS (02/02/2020) us Provider Scanning Final Result documented in this encounter Visit Diagnoses Not on filedocumented in this encounter Care Teams Curve Cleaner Relationship Specialty Start Date End Date Abhishek King MD PCP - General Family Medicine 04/30/19 04/29/23 Abhishek King MD [facility] [place] [address] PCP - General Family Medicine 04/30/23 Julio De Luna MD [address] [place] [address] Surgeon Vascular Surgery 04/03/22 documented as of this encounter
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
--- OUTSIDE RECORDS SUMMARY | 2024-08-23 10:20 | XMS_ITS | Clinical Summary ---
Author Organization [facility] Address [address], [address] [id number] Phone Care Team Providers Care Screener Operator Name Role Phone Abhishek King MD Primary Care Provider [phone]- [phone] Medications polyethylene glycol (MIRALAX) Powder Use entire 255g bottle with 64oz of clear liquid as directed for colonoscopy prep. 255 g 0 7 Active Social History Tobacco Use Types Packs/Day Years Used Date Smoking Tobacco: Never Assessed Comments Unknown Sex and Gender Information Value Date Recorded Sex Assigned at Not on file Legal Sex Female 12:00 AM CDT Gender Identity Not on file Sexual Orientation Not on file Plan of Treatment Health Maintenance Due Date Last Done Comments DEXA Bone Density 1950 Hepatitis C Virus (HCV) Screening 1950 TdaP Immunization 1952 Colonoscopy 1997 Colorectal Cancer Screening 1997 Cologuard 2002 Immunochemical Fecal Occult Blood 2002 Mammogram 2002 Pneumococcal Immunization (5 0+ years) (1 of 1 - PCV) 2002 Zoster Immunization (1 of 2) 2002 Influenza Immunization (#1) 2024 SARS-COV-2 Immunization ( - 2023- season) 2024 Respiratory Syncytial Virus (RSV) Immunization (Adult) (1 - 1-dose 75+ series) 10/07/2027 Hepatitis B Immunization Aged Out No longer eligible based on patient's age to complete this topic Meningococcal Immunization (ACWY) Aged Out No longer eligible based on patient's age to complete this topic Rotavirus Immunization Aged Out No lo nger eligible based on patient's age to complete this topic Insurance [facility] Care Teams Screener Operator Relationship Specialty Start Date End Date Abhishek King MD [address] [place] [address] [address] [place], [place] [id number] PCP - General Family Medicine 11/18/16
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
--- OUTSIDE RECORDS SUMMARY | 2024-08-23 10:20 | XMS_ITS | Referral Summary ---
Author Organization [facility] Address [address] [place] [address] Care Team Providers Care Medical Lab Director Name Role Phone Julio De Luna MD Unavailable [phone] Abhishek King MD Primary Care Provider [phone] Encounters Date Type Department Care Team Description 06/14/2024 9:00 AM RAILWAY STATION MANAGER Office Visit 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 Ophthalmology [address] [place] [phone] Alison Marcos MD PhD New pt scheduled; sooner appt request from Last 3 Months Allergies No known active allergies Medications carvedilol [...] Manzano) Assessment & Plan (06/14/2024 2:40 PM RAILWAY STATION MANAGER): Here for second opinion. Was doing okay [...] history of dementia (but did well on cookie thief today). No macular edema on OCT mac. Suspect her primary visual concerns are driven by her need to wear readers and difficulty using progressives given underlying dementia. We provided +2.50 OTC readers and was able to do well with near card. Blepharitis of upper and lower eyelids of both e yes 06/14/2024 Assessment & Plan (06/14/2024 2:37 PM RAILWAY STATION MANAGER): Asymptomatic per patient. Observe. Atherosclerosis of [place] of both lower extremities with [...] complication, without long-term current use of insulin ([facility]) 04/09/2022 Assessment & Plan (06/14/2024 2:29 PM RAILWAY STATION MANAGER): No retinopathy on dilated exam Assessment & [...] of her son who is a physician metal moulder's assistant. She did not have any improvement [...] were visible. We will write her local compound specialist with our findings and recommendations for further evaluation. We we are happy to reevaluate the patient in the future if desired and we are making recommendations for further testing if she does return. Lucian Howard MD 03/02/2021 5:54 PM Assessment & Plan (06/14/2024 2:43 PM RAILWAY STATION MANAGER): Hx of SLTx2 2018. OCT OS today [...] PM Assessment & Plan (06/14/2024 2:37 PM RAILWAY STATION MANAGER): Longstanding history of injury. Stable today. Immunizations Name Administration Dates Next Due Influenza, Quadrivalent, Rec ombinant, Egg Free, Preservative Free, Intramuscular 05/05/2020,04/29/2019 Influenza, Quadrivalent, Spl it, Preservative Free, Intramuscular 05/01/2018 Social History Tobacco Use Types Packs/Day Years Used Date Smoking Tobacco: Former Cigarettes 0.5 33 1 978 - 2010 Smokeless Tobacco: Never Alcohol Use Standard Drinks/Week Comments Yes 0 (1 standard drink = 0.6 oz pur e alcohol) social Comments No Sex and Gender Information Value Date Recorded Sex Assigned at Not on file Legal Sex Female 12:44 AM RAILWAY STATION MANAGER Gender Identity Female 04/21/2020 12:12 PM CDT Sexual Orientation Straight 04/21/2020 12 :12 PM CDT Last Filed Vital Signs Vital Sign Reading [...] 05/08/2022 10:21 AM CDT Plan of Treatment Not on file Procedures Procedure Name Priority Date/Time Associated Diagnosis Comments OCT, OPTIC NERVE - OS - LEFT EYE Routine 06/14/2024 2:41 PM RAILWAY STATION MANAGER 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) ([facility]) SCREENING MAMMOGRAM BILATERAL W JAAMAL Schedule Routine, Read Routine (OP Routine) 04/30/2023 1:45 PM CDT Screening mammogram, encounter for from Last 3 Months or Most Recently Relevant to Health Maintenance Results * OCT, Optic Nerve - OS - Left Eye (06/14/2024 2:41 PM RAILWAY STATION MANAGER) RNFL OS 73 micrometers CONTINUUM Anatomical Region Laterality Modality Head Optical Coherenc e Tomography Narrative 06/28/2024 9:00 AM RAILWAY STATION MANAGER Reliability was good. Average RNFL thickness 73 micrometers. Notes OS: Inferior thinning Yoly French MD OPHTH TOMOGRAPHY Fin al Result * OCT, Retina - OS - Left Eye (06/14/2024 2:40 PM RAILWAY STATION MANAGER) Anatomical Region Laterality Modality Head Optical Coherenc e Tomography Narrative 06/28/2024 9:01 AM RAILWAY STATION MANAGER Quality was good. Scan locations included subfoveal. [...] compared to prior imaging studies performed at [facility] on 01/29/2021, 02/02/2021 and 03/06/2022. There [...] compared to prior imaging studies performed at [facility] on 01/29/2021, 02/02/2021 and 03/06/2022. There are scattered areas of fibroglandular density. There is no suspicious abnormality in either breast. Impression: There is no mammographic evidence of malignancy. Annual screening mammography is recommended.If supplemental screening is desired, breast MRI would be recommended in this patient with heterogeneously dense breasts. OVERALL FINAL ASSESSMENT: BI-RADS CATEGORY 1: Negative. Self Screening Mammogram IMG MAMMO PROCEDURES Fi nal Result from Last 3 Months or Most Recently Relevant to Health Maintenance Insurance [facility]ICARE [facility] MEDICARE [facility] Care Teams Medical Lab Director Relationship Specialty Start Date End Date Abhishek King MD [address] [place] [address] [address] [place] [address] PCP - General Family Medicine 04/30/23 Julio De Luna MD [address] [place] [address] [address] [place] [address] Surgeon Vascular Surgery 04/03/22
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
--- OUTSIDE RECORDS SUMMARY | 2024-08-23 10:20 | XMS_ITS | Clinical Summary ---
Author Organization [facility] [employer] Address [address] [place] [address] Care Team Providers Care Newspaper Journalist Name Role Phone Abhishek King MD Primary Care Provider [phone]- [phone] Source Comments [facility] [employer],non-owned Affiliates and Associated Physician Practices is amultiple site organization consisting of ambulatory clinics and hospital sitesin [place], [place], [place] and [place]. This disclosure is being madepursuant to the Care Everywhere program and may not contain all information available regarding this patient. Last updated 18.[facility] [employer] Allergies No known active allergies Medications * [...] of her son who is a physician physical therapist assistant. She did not have any improvement [...] were visible. We will write her local community living specialist with our findings and recommendations for [...] RECOM-APPLE, QUADR. (FLUBLOCK QUADRIVALENT; 18Y+) (RIV4) 05/05/2020,04/29/2019 Family History Medical History Relation Name Comments Glaucoma Father Glaucoma Paternal Grandfather Glaucoma Paternal Grandmother Relation Name Status Comments Father Paternal Grandfather Paternal Grandmother Social History Tobacco Use Types Packs/Day Years [...] Health Maintenance Due Date Last Done Comments BONE DENSITY TESTING 1950 COLOGUARD (AGES 45-75) - COL ON CA SCREENING 1950 COLON MONITORING 1950 COLONOSCOPY - COLON CA SCREENING 1950 CT COLONOGRAPHY - COLON CA SCREENING 1950 Colorectal Cancer Screening 1950 FIT - COLON CA SCREENING 1950 FLEX SIG - COLON CA SCREENING 1950 MEDICARE AWV 12 MONTHS 1950 HEPATITIS C SCREENING 10/02/1970 DTAP/TDAP/TD VACCINES (1 - Tdap) 10/07/1971 PNEUMOCOCCAL VACCINE 50+ (1 of 1 - PCV) 2002 ZOSTER VACCINE (1 of 2) 2002 MAMMOGRAM 01/29/2023 01/29/2021 COVID-19 VACCINE (3 - 2023-2 5 season) 2024 10/07/2020, 09/14/2020 INFLUENZA VACCINE (#1) 2024 0, 04/29/2019, 05/01/2018 DEPRESSION SCREENING 07/14/2024 Respiratory Syncytial Virus (RSV) Vaccine Pt: or over 60 yrs (1 - 1-dose 75+ series) 10/07/2027 HEPATITIS B VACCINE Aged Out No longe r eligible based on patient's age to complete this topic HIB VACCINE Aged Out No longer eligi ble based on patient's age to complete this topic HPV VACCINE Aged Out No longer eligi ble based on patient's age to complete this topic MENINGOCOCCAL (Group B) VACCINE Aged Out No longer eligible b ased on patient's age to complete this topic MENINGOCOCCAL VACCINE Aged Out No annamarie faiza eligible based on patient's age to complete this topic Care Teams Newspaper Journalist Relationship Specialty Start Date End Date Abhishek King MD [address] [place] [address] PCP - General 01/12/21
--- OUTSIDE RECORDS SUMMARY | 2024-08-23 10:20 | XMS_ITS ---
Author Organization [facility] Address [address] [place] [address] Care Team Providers Care Barrel Turner Name Role Phone Verito Fields Unavailable [phone] Abhishek King MD Unavailable Unavailable zzzzMigration, zzzzProvider Unavailable Unav ailable Allergies No Known Allergies REASON FOR VISIT EMR-Toy Medications Medication SIG (Take, Route, Frequency, Duration) Notes Start Date End Date Status Latanoprost 0.005 % instill 1 drop into [...] daily in the evening Oral 1 Active metFORMIN HCl 500 MG 500mg in morning, 1 000mg in evening Oral Active Carvedilol 6.25 MG take 1 tablet (6.25 mg) by oral route 2 times per day with food Oral 2 Active Betimol 0.5 % instill 1 drop into affected eye(s) by ophthalmic route 2 times per day Ophthalmic 2 Active Brimonidine Tartrate 0.2 % instill 1 abhi p into affected eye(s) by ophthalmic route every 12 hours Ophthalmic 3 Active Encounters Encounter Location Date Provider Diagnosis [facility] [address] [place] [address] 05/04/2023 zzzzProvider zzzzMigration Plan Of Treatment No Information Progress Notes * Michelle GUZM[birth year]OB:[birth year] (73 yo F)Acc No.[id number]:05/04/2023 Patient: Michelle MCKEE :1950 A ge:72 Y S ex:Female Address:[address] [place], [place] [id number] Subjective: * Chief Complaints: * E MR-Toy * Medical History: * Surgical History: r otator cuff repair; [id number]; [id number]; 2019-07-24 * Hospitalization/Major Diagno stic Procedure: * Family History: M igrated Family History: Arthritis , Diabetes , Gout , Heart Disease , Hypertension . * Social History: M igrated Social History: M igrated Social History: :: 2 Children , Marital Status :: , Substance Use :: Alcohol-Does not give any significant history , Substance Use :: Tobacco :: Former :: note : 07/29/2019 - quit 2010. * Medications: T akingSimvastatin 10 MG Tablet take 1 tablet (10 mg) by oral route once daily in the evening Oral 1 Latanoprost 0.005 % Solution instill 1 drop into right eye by ophthalmic route once daily in the evening Ophthalmic 1 Brimonidine Tartrate 0.2 % Solution instill 1 drop into affected eye(s) by ophthalmic route every 12 hours Ophthalmic 3 Carvedilol 6.25 MG Tablet take 1 tablet (6.25 mg) by oral route 2 times per day with food Oral 2 Betimol 0.5 % Solution instill 1 drop into affected eye(s) by ophthalmic route 2 times per day Ophthalmic 2 Meloxicam 15 MG Tablet TAKE 1 TABLET BY MOUTH EVERY DAY Oral PROzac 20 MG Capsule take 1 capsule (20 mg) by oral route once daily in the evening Oral 1 metFORMIN HCl 500 MG Tablet 500mg in morning, 1000mg in evening Oral Taking Simvastatin 10 MG Tablet take 1 tablet (10 mg) by oral route once daily in the evening Oral 1 Taking Latanoprost 0.005 % Solution instill 1 drop into right eye by ophthalmic route once daily in the evening Ophthalmic 1 Taking Brimonidine Tartrate 0.2 % Solution instill 1 drop into affected eye(s) by ophthalmic route every 12 hours Ophthalmic 3 Taking Carvedilol 6.25 MG Tablet take 1 tablet (6.25 mg) by oral route 2 times per day with food Oral 2 Taking Betimol 0.5 % Solution instill 1 drop into affected eye(s) by ophthalmic route 2 times per day Ophthalmic 2 Taking Meloxicam 15 MG Tablet TAKE 1 TABLET BY MOUTH EVERY DAY Oral Taking PROzac 20 MG Capsule take 1 capsule (20 mg) by oral route once daily in the evening Oral 1 Taking metFORMIN HCl 500 MG Tablet 500mg in morning, 1000mg in evening Oral * Allergies: N .K.D.A.no[Allergies Verified] Objective: * Vitals: * Physical Examination: Assessment: Plan: * Treatment: * Procedure Codes: * * Date:
[2024-08-23 13:03] LABS: Basophils Absolute Auto 0.1 K/mm3 (0.0-0.1); Basophils Percent Auto 0.6 % (0.2-1.2); Eosinophils Absolute Auto 0.8 K/mm3 (0-0.3); Eosinophils Percent Auto 9.8 % (0-4.4); Hematocrit 46.5 % (37.0-47.0); Hemoglobin 14.7 g/dL (12.0-15.0); Immature Granulocyte Absolute 0.03 K/mm3 (0.00-0.031); Immature Granulocyte Percent A 0.4 % (0-0.5); Immature Reticulocyte Fraction 13.2 % (3.0-15.9); Lymphocytes Absolute Auto 1.47 K/mm3 (0.9-3.2); Lymphocytes Percent Auto 17.2 % (18.3-44.2); Mean Corpuscular HGB Conc 31.6 g/dl (32-36); Mean Corpuscular Hemoglobin 29.4 pg (26-34); Mean Platelet Volume 11.9 fl (7.4-10.4); Monocytes Absolute Auto 0.7 K/mm3 (0.1-0.6); Monocytes Percent Auto 7.7 % (2.6-8.5); Neutrophils Absolute Auto 5.5 K/mm3 (1.3-6.7); Neutrophils Percent Auto 64.3 % (45.5-73.1); Platelet Count Result 240 k/mm3 (150-375); Red Cell Distribution Width 14.5 % (11.5-14.5); Reticulocyte Hemoglobin Conten 32.1 pg (28.2-36.6); Reticulocyte Percent 1.56 % (0.7-4.3); Reticulocytes Absolute 0.08 10^6/uL (0.02-0.10); White Blood Count 8.6 K/mm3 (4.5-10.0)
[2024-08-23 15:13] LABS: Alanine Aminotransferase 65 U/L (6-35); Albumin Level 4.1 g/dL (3.5-5.1); Alkaline Phosphatase 126 U/L (38-126); Anion Gap 12 mmol/L (4-12); Aspartate Amino Transferase 46 U/L (14-36); Bilirubin,Total 0.6 mg/dL (0.2-1.3); Blood Urea Nitrogen 22 mg/dL (7-17); Calcium 9.9 mg/dL (8.4-10.2); Carbon Dioxide 22 mmol/L (22-30); Chloride 102 mmol/L (98-107); Estimated Glomerular Filt Rate > 60; Glucose 136 mg/dL (65-110); Potassium 4.5 mmol/L (3.4-5.0); Sodium 136 mmol/L (137-145)
[2024-08-23 15:25] LABS: Iron 105 ug/dL (37-170)
[2024-08-23 15:35] LABS: Percent Iron Saturation 33 % (20-50)
[2024-08-23 16:04] LABS: Ferritin 3.76 ng/mL (11.1-264)
[2024-08-23 16:21] LABS: Vitamin B12 > 1000.0 pg/mL (239-931)
[2024-08-23 16:32] LABS: Vitamin D 25 Hydroxy 16.8 ng/mL
[2024-08-23 16:43] LABS: Thyroid Stimulating Hormone Reflex < 0.015 uIU/mL (0.465-4.68)
[2024-08-23 17:10] LABS: Free T4 Free Thyroxine Reflex 0.72 ng/dL (0.78-2.19)
== END 2024-08-23 09:41 | disposition home or self-care (01) ==
PROVIDERS: PCP Family Medicine; Visit Provider Nurse Practitioner Family
DX: D50.9 Iron deficiency anemia, unspecified (principal); E55.9 Vitamin D deficiency, unspecified; E53.8 Deficiency of other specified B group vitamins; R53.83 Other fatigue; E79.0 Hyperuricemia without signs of inflammatory arthritis and tophaceous disease
CPT/HCPCS: 36415; 80053; 82306; 82607; 82728; 83540; 83550; 84439; 84443; 85025; 85046

== ENCOUNTER 2024-09-07 09:23 | Outpatient (CLI) | payer MEDICARE, SELFPAY ==
[2024-09-07 10:07] LABS: Basophils Absolute Auto 0.1 K/mm3 (0.0-0.1); Basophils Percent Auto 0.5 % (0.2-1.2); Eosinophils Absolute Auto 0.7 K/mm3 (0-0.3); Eosinophils Percent Auto 6.6 % (0-4.4); Hematocrit 47.1 % (37.0-47.0); Hemoglobin 15.1 g/dL (12.0-15.0); Immature Granulocyte Absolute 0.25 K/mm3 (0.00-0.031); Immature Granulocyte Percent A 2.3 % (0-0.5); Lymphocytes Absolute Auto 1.16 K/mm3 (0.9-3.2); Lymphocytes Percent Auto 10.7 % (18.3-44.2); Mean Corpuscular HGB Conc 32.1 g/dl (32-36); Mean Corpuscular Hemoglobin 29.8 pg (26-34); Mean Corpuscular Volume 93.1 fl (80-100); Mean Platelet Volume 11.2 fl (7.4-10.4); Monocytes Percent Auto 8.9 % (2.6-8.5); Neutrophils Absolute Auto 7.7 K/mm3 (1.3-6.7); Platelet Count Result 215 k/mm3 (150-375); Red Blood Count 5.06 M/mm3 (4.2-5.4); Red Cell Distribution Width 14.6 % (11.5-14.5); White Blood Count 10.9 K/mm3 (4.5-10.0)
--- OUTSIDE RECORDS SUMMARY | 2024-09-07 10:21 | XMS_ITS | Referral Summary ---
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 Was doing okay [...] history of dementia (but did well on CourseWeaver thief today). No macular edema on OCT mac. Suspect her primary visual concerns are driven by her need to wear readers and difficulty using progressives given underlying dementia. We provided +2.50 OTC readers and was able to do well with near card. Blepharitis of upper and lower eyelids of both e yes 06/14/2024 Assessment & Plan (06/14/2024 2:37 PM [facility]): Asymptomatic per patient. Observe. Atherosclerosis of [place] ar ek[place] of both lower extremities with [...] complication, without long-term current use of insulin ([facility]) 04/09/2022 Assessment & Plan (06/14/2024 2:29 PM [facility]): No retinopathy on dilated exam Assessment & [...] of her son who is a physician account assistant. She did not have any improvement [...] were visible. We will write her local warhead maintenance specialist with our findings and recommendations for further evaluation. We we are happy to reevaluate the patient in the future if desired and we are making recommendations for further testing if she does return. Lucian Howard MD 03/02/2021 5:54 PM Assessment & Plan (06/14/2024 2:43 PM [facility]): Hx of SLTx2 2018. OCT OS today [...] probably has dense amblyopia as a result. uLcian Howard MD 03/02/2021 5:56 PM Assessment & Plan (06/14/2024 2:37 PM [facility]): Longstanding history of injury. Stable today. 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, severe stage Type 2 diabetes mellitus without complication, without long-term current use of insulin ([facility]) (HCC) SCREENING MAMMOGRAM BILATERAL W JAMAAL Schedule Routine, Read Routine (OP Routine) 04/30/2023 1:45 PM CDT Screening mammogram, encounter for from Last 3 Months or Most Recently Relevant to Health Maintenance Results * OCT, Optic Nerve - OS - Left Eye (06/14/2024 2:41 PM [facility]) RNFL OS 73 micrometers CONTINUUM Anatomical Region Laterality Modality Head Optical Coherenc e Tomography Narrative 06/28/2024 9:00 AM [facility] Reliability was good. Average RNFL thickness 73 micrometers. Notes OS: Inferior thinning Yoly French MD OPHTH TOMOGRAPHY Fin al Result * OCT, Retina - OS - Left Eye (06/14/2024 2:40 PM [facility]) Anatomical Region Laterality Modality Head Optical Coherenc e Tomography Narrative 06/28/2024 9:01 AM [facility] Quality was good. Scan locations included subfoveal. [...] compared to prior imaging studies performed at [facility] on 01/29/2021, 02/02/2021 and 03/06/2022. There are [...] compared to prior imaging studies performed at [facility] on 01/29/2021, 02/02/2021 and 03/06/2022. There are [...] Recently Relevant to Health Maintenance Insurance MEDICARE [facility] MEDICARE [facility] MEDICARE [facility] Care Teams Refrigeration Plant Operator Relationship Specialty Start Date End Date Abhishek King MD [address] [place] [address] PCP - General Family Medicine 04/30/23 Julio De Luna MD [address] [place] [address] Surgeon Vascular Surgery 04/03/22
--- OUTSIDE RECORDS SUMMARY | 2024-09-07 10:21 | XMS_ITS | Referral Summary ---
Author Organization [facility] Address [address] [place] [address] Care Team Providers Care Broomcorn Grader Name Role Phone Abhishek King MD Primary Care Provider [phone]- [phone] Source Comments [facility] [employer],non-owned Affiliates and Associated Physician Practices is amultiple site organization consisting of ambulatory clinics and hospital sitesin [place], [place], [place] and [place]. This disclosure is being madepursuant to the Care Everywhere program and may not contain all information available regarding this patient. Last updated 18.[facility] [employer] Allergies No known active allergies Medications * [...] of her son who is a physician retail event and sales assistant. She did not have any improvement [...] were visible. We will write her local quality improvement specialist with our findings and recommendations for [...] of Treatment Not on file Care Teams Broomcorn Grader Relationship Specialty Start Date End Date Abhishek King MD [facility] [place] [address] [facility] - General 01/12/21
--- OUTSIDE RECORDS SUMMARY | 2024-09-07 10:21 | XMS_ITS | Clinical Summary ---
Author Organization [facility] Address [address] [place] [address] Care Team Providers Care Benefits Administrator Name Role Phone Abhishek King MD Primary Care Provider [phone]- [phone] Allergies No known active allergies Medications latanoprost [...] Acute encephalopathy 09/04/2022 Colitis 07/11/2022 Atherosclerosis of [place] ar [place] of both lower extremities with [...] complication, without long-term current use of insulin ([facility]) 04/09/2022 Overview (09/07/2022): Last Assessment & [...] of her son who is a physician technician assistant. She did not have any improvement [...] were visible. We will write her local route sales specialist with our findings and recommendations for [...] of her son who is a physician technician assistant. She did not have any improvement [...] were visible. We will write her local route sales specialist with our findings and recommendations for [...] often do you attend chur ch or mormon services? Never 07/12/2022 Do you belong to any clubs o r organizations such as episcopal groups, unions, fraternal or athletic groups, or [...] Recorded Patient Health Questionnaire-2 Score 0 09/23/2022 [facility] of Occupat ional Health - Occupational Stress [...] place to sleep or slept in a fci (including now)? 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 Gender Identity Not on file Sexual Orientation [...] 2017 Dexa Scan (General) 2017 PHQ-2 (Physician [place]) 09/24/2023 09/23/2022 COVID-19 Vaccine ( - season) 2024 05/09/2021, 10/07/2020, 09/14/2020 Influenza Adult (#1) 2024 04/11/2022, 05/09/2021, 05/05/2020, Additional history exists PHQ-2 (Physician [place]) 07/14/2024 09/23/2022 RSV Immunization or 60+ Years [...] Lifestyle No Toma Prado RN Insurance MEDICARE [facility] Advance Directives * Full Code (Latest Code Status on File) Date Activated Date Inactivated Comments 09/04/2022 9:37 PM 09/09/2022 7:37 PM * Full Code Date Activated Date Inactivated Comments 07/11/2022 5:16 PM 07/14/2022 2:11 PM Care Teams Benefits Administrator Relationship Specialty Start Date End Date Abhishek King MD [facility] [place] [id number] PCP - General FAMILY PRACTICE 07/11/22
--- OUTSIDE RECORDS SUMMARY | 2024-09-07 10:21 | XMS_ITS | Encounter Summary ---
Author Organization [facility] Address [address] [place] [address] Care Team Providers Care Switching Clerk Name Role Phone Abhishek King MD Primary Care Provider [phone] Julio De Luna MD Unavailable [phone] Abhishek King MD Primary Care Provider [phone] Encounter Details Date Type Department Care Team (Late st Contact Info) Description 02/02/2020 Orders Only [facility] Health Information Management [address] [place] [address] Scanning, Provider Social History Tobacco Use Types Packs/Day Years Used Date Smoking Tobacco: Never Smokeless Tobacco: Never Comments Unknown Sex and Gender Information Value Date Recorded Sex Assigned at Not on file 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
--- OUTSIDE RECORDS SUMMARY | 2024-09-07 10:21 | XMS_ITS | Clinical Summary ---
Author Organization [facility] Address [address] [place] [place] [address] Care Team Providers Care Social Service Agency Director Name Role Phone Abhishek King MD Primary Care Provider +1- [phone] Allergies No known active allergies Medications brimonidine (ALPHAGAN) 0.2 % solution instill 1 drop into affected eye(s) by ophthalmic route every 12 hours Ophthalmic 3 Active dapagliflozin propanediol (Farxiga) 10 mg Tablet Take 10 mg by mouth daily. 3 Active FLUoxetine (PROzac) 20 mg capsule Take 20 mg by mouth daily. Active lisinopriL (PRINIVIL) 20 mg tablet Take 20 mg by mouth daily. 1 Active metFORMIN (GLUCOPHAGE) 500 mg tablet Take 1,000 mg by mouth daily with breakfast. Active rosuvastatin (CRESTOR) 5 mg tablet Take 5 mg by mouth daily. Active latanoprost (XALATAN) 0.005 % solution instill 1 drop into right eye by ophthalmic route once daily in the evening Ophthalmic 1 Active timoloL maleate (TIMOPTIC) 0.25% solution 1 Drop by Ophthalmic route 2 times daily. 2 Active tobramycin-dexAM ETHasone (TOBRADEX) 0.3-0.1 % ointment by Ophthalmic route. 1 Active ferrous sulfate 325 mg (65 mg iron) tablet Take 325 mg by mouth daily. Active QUEtiapine (SEROquel) 25 mg tablet Take 25 mg by mouth 2 times daily. Active Active Problems No known active problems Encounters Date Type Department Care Team Description 09/01/2024 External Device Data STL ABSTRACTION Provider, Abstract 08/05/2024 External Device Data STL ABSTRACTION Provider, Abstract from Last 3 Months Family History Medical History Relation Name Comments No Known Problems Child 1 No Known Problems Child 2 adopted Diabetes Father Heart Disease Father No Known Problems Mother No Known Problems Sister 1 No Known Problems Sister 2 No Known Problems Sister 3 Relation Name Status Comments Child 1 Alive Child 2 adopted Alive Father Mother Alive Sister 1 Alive Sister 2 Alive Sister 3 Alive Social History Tobacco Use Types Packs/Day Years Used Date Smoking Tobacco: Former Cigarettes 0.5 15 0 02/04/1994 - 02/04/2009 Smokeless Tobacco: Never Tobacco Cessation:Counseling Given: Not Answered Alcohol Use Standard Drinks/Week Comments Yes 0 (1 standard drink = 0.6 oz pur e alcohol) Socially Comments Unknown Sex and Gender Information Value Date Recorded Sex Assigned at Not on file Legal Sex Female 11:37 AM CDT Gender Identity Not on file Sexual Orientation Not on file Last Filed Vital Signs Vital Sign Reading Time Taken Comments Blood Pressure 106/70 02/05/2024 11:17 AM CDT Pulse 79 02/05/2024 11:17 AM CDT Temperature 36.1 C (96.9 F) 02/05/2024 11:17 AM CDT Respiratory Rate 14 02/05/2024 11:17 AM CDT Oxygen Saturation 97% 02/05/2024 11:17 AM CDT Inhaled Oxygen Concentration - - Weight 67.1 kg (148 lb) 02/05/2024 11:17 AM CDT Height 167.6 cm (5' 6 ) 02/05/2024 11:17 AM CDT Body Mass Index 23.89 02/05/2024 11:17 AM CDT Plan of Treatment Upcoming Encounters Date Type Department Care Team (Late st Contact Info) Description 09/16/2024 1:15 PM NEW CAR GET READY MECHANIC Office Visit [facility] Oncology and Hematology - Yehuda [address] [facility] [address] [place] [address] Colton Sanders MD [address] [facility] [address] [place] [address] Health Maintenance Due Date Last Done Comments DIABETES ANNUAL FOOT EXAM 1970 DIABETES HBA1C Q 6 MONTHS 1970 DIABETES MICROALBUMIN ANNUAL SCREEN 1970 LDL CHOLESTEROL ANNUAL 1970 DTAP/TDAP/TD VACCINES (1 - Tdap) 10/07/1971 PNEUMOCOCCAL VACCINE 65+ YEA RS (1 of 2 - PCV) 10/07/1971 Traditional Medicare (ACO) A nnual Wellness Visit 10/07/1971 FIT-DNA Q 3 years 1997 FIT/FOBT Q 1 year 1997 Flex Sig/CT Colonography Q 5 years 1997 ZOSTER VACCINE (1 of 2) 2002 RSV VACCINE (60+ or ) (1 - Risk 60-74 years 1-dose series) 2012 OSTEOPOROSIS SCREENING 2017 DIABETES ANNUAL RETINAL EXAM 03/02/2022 03/02/2021 INFLUENZA VACCINE (#1) 2024 , 04/29/2019, 05/01/2018 COVID-19 Vaccine (4 - 2023-2 5 season) 2024 05/09/2021, 10/07/2020, 09/14/2020 BREAST CANCER SCREENING 04/30/2024 04/30/20, 03/06/2022, 02/02/2021, Additional history exists COLORECTAL SCREENING 02/24/2034 02/25/2024, 11/07/19 Colorectal Cancer Screening 02/24/2034 Procedures Procedure Name Priority Date/Time Associated Diagnosis Comments COLONOSCOPY REPORT Routine 02/25/2024 9:54 AM CDT from Last 3 Months or Most Recently Relevant to Health Maintenance Results * COLONOSCOPY REPORT (02/25/2024 9:54 AM CDT) Colton Sanders MD GI PROCEDURE ORDERABLES Final R esult from Last 3 Months or Most Recently Relevant to Health Maintenance Insurance MEDICARE PART A AND B [facility] [id number] Member Subscriber Plan / Payer (Ef fective 2023-Present) Name:Michelle Colon Relation to Subscriber:Self Name:Michelle Colon Payer ID:[id number] (NAIC) Group ID:Not on file Type:Supplemental Address: [place] [id number] Care Teams Social Service Agency Director Relationship Specialty Start Date End Date Abhishek King MD [address] [place] [id number] PCP - General Family Practice 02/10/24
--- OUTSIDE RECORDS SUMMARY | 2024-09-07 10:21 | XMS_ITS | Clinical Summary ---
Author Organization [facility] Address [address], [address] [address] Phone Care Team Providers Care First Beater Name Role Phone Abhishek King MD Primary Care Provider +1- [phone] Medications polyethylene glycol (MIRALAX) Powder Use entire [...] patient's age to complete this topic Insurance [facility] Care Teams First Beater Relationship Specialty Start Date End Date Abhishek King MD [address] [place] [address] [address] [place], [place] [id number] PCP - General Family Medicine 11/18/16
--- OUTSIDE RECORDS SUMMARY | 2024-09-07 10:21 | XMS_ITS | Patient Health Record ---
Author Organization [facility] Address [address] [facility] [address] [place] [address] Care Team Providers Care Sap Ariba Consultant Name Role Phone Verito Fields Unavailable [phone] Abhishek King MD Unavailable Unavailable Allergies No [...] Coverage End Date DO NOT USE AR [id number] Isaiah Michelle Self - patient is the insured [facility] [address] [place] [address] [id number] IsaiahMichelle olivia Self - patient is the insured Medical (General) History Surgical History Surgery Date(Month/Year) rotator cuff repair; 2019-07-24 Hysterectomy; 2019-07-24 cholecystectomy; 2019-07-24
--- OUTSIDE RECORDS SUMMARY | 2024-09-07 10:21 | XMS_ITS | Clinical Summary ---
Author Organization [facility] Address [address] [place] [address] Care Team Providers Care Airframe Design Engineer Name Role Phone Abhishek King MD Primary Care Provider [phone]- [phone] Source Comments [facility],non-owned Affiliates and Associated Physician Practices is amultiple site organization consisting of ambulatory clinics and hospital sitesin [place], [place], [place] and [place]. This disclosure is being madepursuant to the Care Everywhere program and may not contain all information available regarding this patient. Last updated 18.[facility] Allergies No known active allergies Medications * [...] her son who is a physician assistant facility manager. She did not have any improvement [...] were visible. We will write her local biology specialist with our findings and recommendations for [...] age to complete this topic Care Teams Airframe Design Engineer Relationship Specialty Start Date End Date Abhishek King MD [address] [place] [address] PCP - General 01/12/21
--- OUTSIDE RECORDS SUMMARY | 2024-09-07 10:21 | XMS_ITS | Continuity of Care Document ---
Author Organization [facility] Address [address] [facility] [address] [place] [address] Phone Care Team Providers Care Keno Terminal Operator Name Role Phone Wilner Zamorano Unavailable Unavailable Procedures Procedure Date Visual Field Examination(s) Eye Exam & Treatment Refraction Visual Field Examination(s) Office/outpatient Visit, Est Eye Exam Established Pt Office Consultation Advance Directives Directive Yes / No Effective Date File Name No Information Encounters Encounter Description Practice Location Reason(s) For Visit Diagnoses Date Provider Providers Copied on Encounter [facility], [address] [place] [address] [address], [place], [place], [id number], tel:[phone] [facility] No Information 0 Jaun Darby. [address], [place], [address], [place]. tel:[phone] Referring Provider: Dorothy Russell [facility] [address], [place], [address]. tel:[phone] [facility], [address] [place] [address] [address], [place], [place], [address], tel:[phone] [facility] No Information 201 0 Krishnasandrew Valentín. [address] [facility] [address], [place], [address], [place]. tel:[phone] [facility], [address] [place] [address] [address], [place], [id number], [place] tel:[phone] [facility] No Information May-0 6-200 9 Krishnasamy Valentín. [facility] [address], [place], [address], [place]. tel:[phone] Referring Provider: Valentín luevano, [address] [place], [place] [address]ate [facility] [address], [place], [address]. tel:[phone] Office/outpati ent Visit, [facility], [address] [place] [address] [address], [place], [address], [place] tel:[phone] [facility] No Information 1200 9 Krishnasamy Valentín. [address] [place] [address], [place], [facility], [place]. tel:[phone] Referring Provider: Abhishek King MD, [address] [place] [address], [address]. tel:[phone] [facility], [address] [place] [address] [address], [place], [address], [place] tel:[phone] [facility][note 2] No Information 7-200 8 Krishnasamy Valentín. [address] [place] [address], [place], [address], [place]. tel:[phone] Office Consultation [facility], [address] [place] [address] [address], [place], [address], [place] tel:[phone] SEC Sabine Jose No Information 2-200 7 Bryan Jefferson. [address] [place] [address], [address], [place], [place], [address], [place]. tel:[phone] Referring Provider: Bryanna Sanchezh, [address] [place] [address], [place], [address]. Family History Family Member Type Diagnosis Age At Onset No Information Payers Payer name Insurance type Covered alliance party ID Authoriza tion(s) No Information Social History Type Description Quantity Date Captured Comments Sex Female Smoking Status No Information Chief Complaint And Reason For Visit No Information Reason For Referral Reason For Referral No Information History Of Present Illness Encounter Date Complaint History Of Prese nt Illness No Information Functional Status Date Functional Assessmen t No Information Instructions Date Instruction Additional Infor mation No Information Assessments Type Assessment Date No Information Patient Care Teams Name Effective Dates (start - stop) Status Members No Information
--- OUTSIDE RECORDS SUMMARY | 2024-09-07 10:21 | XMS_ITS ---
Author Organization [facility] Address [address] [facility] [address] [place] [address] Care Team Providers Care Lead Press Operator Name Role Phone Verito Fields Unavailable [phone] Abhishek King MD Unavailable Unavailable zzzzMigration, zzzzProvider Unavailable Unav ailable REASON FOR VISIT EMR-Toy Encounters Encounter Location Date Provider Diagnosis [facility] [address] [facility] [address] [place] [address] 05/03/2023 zzzzProvider zzzzMigration Plan Of Treatment Medication [...] Notes * THOMASMichelleDOB:[birth year] (73 yo F)Acc No.[id number]:05/03/2023 Patient: Michelle MCKEE Mo :1950 A ge:72 Y S ex:Female Address:[address] [place] [address] * Refills Stop Allopurinol Tablet, 100 MG, [...]
--- OUTSIDE RECORDS SUMMARY | 2024-09-07 10:21 | XMS_ITS | Patient Health Summary ---
Author Organization [facility] Address [address] [facility] [address] Care Team Providers Care Sample Carrier Name Role Phone Abhishek King MD Primary Care Provider [phone]- [phone] Note from [facility],non-owned Affiliates and Associated Physician Practices is amultiple site organization consisting of ambulatory clinics and hospital sitesin [place], [place], [place] and [place]. This disclosure is being madepursuant to the Care Everywhere program and may not contain all information available regarding this patient. Last updated 18.[facility] Allergies No known active allergies Medications * [...] 2:42 PM CDT Lucian Howard MD OPHTHALMOLOGY [facility] Care Teams Sample Carrier Relationship Specialty Start Date End Date Abhishek King MD [address] [place] [phone] PCP - General 01/12/21
--- OUTSIDE RECORDS SUMMARY | 2024-09-07 10:21 | XMS_ITS | Clinical Summary ---
Author Organization [facility] Address [address] [place] [address] Care Team Providers Care Dampener Operator Name Role Phone Julio De Luna MD Unavailable [phone] Abhishek King MD Primary Care Provider [phone] Allergies No known active allergies Medications carvedilol [...] Manzano) Assessment & Plan (06/14/2024 2:40 PM CENTRAL STORES ATTENDANT): Here for second opinion. Was doing okay [...] history of dementia (but did well on cookIPICO thief today). No macular edema on OCT mac. Suspect her primary visual concerns are driven by her need to wear readers and difficulty using progressives given underlying dementia. We provided +2.50 OTC readers and was able to do well with near card. Blepharitis of upper and lower eyelids of both e yes 06/14/2024 Assessment & Plan (06/14/2024 2:37 PM CENTRAL STORES ATTENDANT): Asymptomatic per patient. Observe. Atherosclerosis of [place] of both lower extremities with [...] complication, without long-term current use of insulin ([facility]) 04/09/2022 Assessment & Plan (06/14/2024 2:29 PM CENTRAL STORES ATTENDANT): No retinopathy on dilated exam Assessment & [...] of her son who is a physician elementary assistant teacher. She did not have any improvement in [...] were visible. We will write her local it technical support specialist with our findings and recommendations for further evaluation. We we are happy to reevaluate the patient in the future if desired and we are making recommendations for further testing if she does return. Lucian Howard MD 03/02/2021 5:54 PM Assessment & Plan (06/14/2024 2:43 PM CENTRAL STORES ATTENDANT): Hx of SLTx2 2018. OCT OS today [...] PM Assessment & Plan (06/14/2024 2:37 PM CENTRAL STORES ATTENDANT): Longstanding history of injury. Stable today. 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, severe stage; Type 2 diabetes mellitus without complication, without long-term current use of insulin ([facility]) (HCC); Pseudophakia of left eye from Last 3 Months Immunizations Immunization Administration Dates Next Due Influenza, [...] on file Legal Sex Female 12:44 AM CENTRAL STORES ATTENDANT Gender Identity Female 04/21/2020 12:12 PM CDT [...] 1950 Foot Exam 1950 Lipid Panel 1952 DTaP/Tdap/Td Vaccine (1 - Tdap) 10/07/1963 Hepatitis B Screening 1970 Pneumococcal vaccine 65+ (1 of 2 - PCV) 10/07/1971 Zoster Vaccine (1 of 2) 2002 Well Visit 65+ 2017 Fall Risk Assessment 04/17/2021 04/17/2020 Covid-19 Vaccine (4 - 2023-2 5 season) 2024 05/09/2021, 10/07/2020, 09/14/2020 Influenza Vaccine (#1) 2024 , 05/09/2021, 05/05/2020, Additional history exists Breast Cancer Screening-Mammogram 04/30/2024 04/30/2023, 03/06/2022, 01/29/2021 Dilated Eye Exam 06/14/2025 06/14/2024 Procedures Procedure Name Priority Date/Time Associated Diagnosis Comments OCT, OPTIC NERVE - OS - LEFT EYE Routine 06/14/2024 2:41 PM CENTRAL STORES ATTENDANT 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, severe stage OCT, RETINA - OS - LEFT EYE Routine 06/14/2024 2:40 PM CENTRAL STORES ATTENDANT 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, severe stage Type 2 diabetes mellitus without complication, without long-term current use of insulin ([facility]) (HCC) SCREENING MAMMOGRAM BILATERAL W JAMAAL Schedule Routine, Read Routine (OP Routine) 04/30/2023 1:45 PM CDT Screening mammogram, encounter for from Last 3 Months or Most Recently Relevant to Health Maintenance Results * OCT, Optic Nerve - OS - Left Eye (06/14/2024 2:41 PM CENTRAL STORES ATTENDANT) RNFL OS 73 micrometers CONTINUUM Anatomical Region Laterality Modality Head Optical Coherenc e Tomography Narrative 06/28/2024 9:00 AM CENTRAL STORES ATTENDANT Reliability was good. Average RNFL thickness 73 micrometers. Notes OS: Inferior thinning Yoly French MD OPHTH TOMOGRAPHY Fin al Result * OCT, Retina - OS - Left Eye (06/14/2024 2:40 PM CENTRAL STORES ATTENDANT) Anatomical Region Laterality Modality Head Optical Coherenc e Tomography Narrative 06/28/2024 9:01 AM CENTRAL STORES ATTENDANT Quality was good. Scan locations included subfoveal. [...] compared to prior imaging studies performed at [facility] on 01/29/2021, 02/02/2021 and 03/06/2022. There are [...] compared to prior imaging studies performed at [facility] on 01/29/2021, 02/02/2021 and 03/06/2022. There are [...] Recently Relevant to Health Maintenance Insurance MEDICARE [facility] MEDICARE [facility] MEDICARE AARP Care Teams Dampener Operator Relationship Specialty Start Date End Date Abhishek King MD [facility] [facility] [address] [place] [address] PCP - General Family Medicine 04/30/23 Julio De Luna MD [address] [place] [address] Surgeon Vascular Surgery 04/03/22
--- OUTSIDE RECORDS SUMMARY | 2024-09-07 10:22 | XMS_ITS ---
Author Organization [facility] Address [address] [facility] [address] [place] [address] Care Team Providers Care Solvent Plant Treater Name Role Phone Verito Fields Unavailable [phone] Abhishek King MD Unavailable Unavailable zzzzMigration, zzzzProvider [...] Active Encounters Encounter Location Date Provider Diagnosis [facility] [address] [facility] [address] [place] [address] 05/04/2023 zzzzProvider zzzzMigration Plan Of Treatment No Information Progress Notes * Michelle GUZMANDOB:[birth year] (73 yo F)Acc No.[id number]:05/04/2023 Patient: Michelle MCKEE :1950 A ge:72 Y S ex:Female Address:[address] [place], [place] [id number] Subjective: * Chief Complaints: * E MR-Toy * Medical History: * Surgical History: r otator cuff repair; [id number]; [id number]; 2019-07-24 * Hospitalization/Major Diagno stic Procedure: * [...]
[2024-09-07 13:46] LABS: Hemoglobin A1C 7.6 % (<5.7)
[2024-09-07 19:31] LABS: Alanine Aminotransferase 107 U/L (6-35); Albumin Level 4.4 g/dL (3.5-5.1); Alkaline Phosphatase 146 U/L (38-126); Anion Gap 13 mmol/L (4-12); Aspartate Amino Transferase 78 U/L (14-36); Bilirubin,Total 0.7 mg/dL (0.2-1.3); Blood Urea Nitrogen 20 mg/dL (7-17); Calcium 9.5 mg/dL (8.4-10.2); Carbon Dioxide 25 mmol/L (22-30); Chloride 102 mmol/L (98-107); Estimated Glomerular Filt Rate 60; Glucose 158 mg/dL (65-110); Potassium 4.7 mmol/L (3.4-5.0); Sodium 140 mmol/L (137-145)
[2024-09-07 22:09] LABS: Thyroid Stimulating Hormone Reflex 0.417 uIU/mL (0.465-4.68)
[2024-09-08 03:17] LABS: Free T4 Free Thyroxine Reflex 0.89 ng/dL (0.78-2.19)
[2024-09-08 04:57] LABS: Total Triiodothyronine (T3) 1.23 NG/ML (0.97-1.69)
== END 2024-09-07 09:24 | disposition home or self-care (01) ==
PROVIDERS: PCP Family Medicine; Visit Provider Family Medicine
DX: E11.65 Type 2 diabetes mellitus with hyperglycemia (principal); M85.80 Other specified disorders of bone density and structure, unspecified site; R74.8 Abnormal levels of other serum enzymes
CPT/HCPCS: 36415; 80053; 83036; 84439; 84443; 84480; 85025

== ENCOUNTER 2024-09-15 13:19 | Outpatient (CLI) | payer MEDICARE, SELFPAY ==
[2024-09-15 13:36] LABS: Basophils Absolute Auto 0.1 K/mm3 (0.0-0.1); Basophils Percent Auto 0.8 % (0.2-1.2); Eosinophils Absolute Auto 0.7 K/mm3 (0-0.3); Eosinophils Percent Auto 7.1 % (0-4.4); Hematocrit 46.4 % (37.0-47.0); Immature Granulocyte Absolute 0.06 K/mm3 (0.00-0.031); Immature Granulocyte Percent A 0.7 % (0-0.5); Lymphocytes Absolute Auto 1.37 K/mm3 (0.9-3.2); Lymphocytes Percent Auto 14.9 % (18.3-44.2); Mean Corpuscular HGB Conc 32.3 g/dl (32-36); Mean Corpuscular Hemoglobin 29.4 pg (26-34); Mean Corpuscular Volume 90.8 fl (80-100); Mean Platelet Volume 10.6 fl (7.4-10.4); Monocytes Absolute Auto 0.9 K/mm3 (0.1-0.6); Monocytes Percent Auto 9.7 % (2.6-8.5); Neutrophils Absolute Auto 6.2 K/mm3 (1.3-6.7); Neutrophils Percent Auto 66.8 % (45.5-73.1); Platelet Count Result 255 k/mm3 (150-375); Red Blood Count 5.11 M/mm3 (4.2-5.4); Red Cell Distribution Width 14.5 % (11.5-14.5); White Blood Count 9.2 K/mm3 (4.5-10.0)
--- OUTSIDE RECORDS SUMMARY | 2024-09-15 14:41 | XMS_ITS | Referral Summary ---
Author Organization [facility] Address [address] [place] [address] Care Team Providers Care Concrete Swimming Pool Installer Name Role Phone Abhishek King MD Primary Care Provider +1- [phone] Source Comments [facility],non-owned Affiliates and Associated Physician Practices is amultiple site organization consisting of ambulatory clinics and hospital sitesin [place], [place], [place] and [place]. This disclosure is being madepursuant to the Care Everywhere program and may not contain all information available regarding this patient. Last updated 18.[facility] Allergies No known active allergies Medications * [...] of her son who is a physician operations and intelligence assistant. She did not have any improvement [...] were visible. We will write her local non destructive evaluation specialist with our findings and recommendations for [...] of Treatment Not on file Care Teams Concrete Swimming Pool Installer Relationship Specialty Start Date End Date Abhishek King MD [facility] [place] [address] [facility] - General 01/12/21
--- OUTSIDE RECORDS SUMMARY | 2024-09-15 14:41 | XMS_ITS ---
Author Organization [facility] Address [address] [facility] [address] [place] [address] Care Team Providers Care Fish Cake Maker Name Role Phone Verito Fields Unavailable [phone] Abhishek King MD Unavailable Unavailable zzzzMigration, zzzzProvider Unavailable Unav ailable REASON FOR VISIT EMR-Toy Encounters Encounter Location Date Provider Diagnosis [facility] [address] [facility] [address] [place] [address] 05/03/2023 zzzzProvider zzzzMigration Plan Of Treatment Medication [...] Notes * THOMASMichelleDOB:[birth year] (73 yo F)Acc No.[id number]:05/03/2023 Patient: Michelle MCKEE Mo :1950 A ge:72 Y S ex:Female Address:[address] [place] [address] * Refills Stop Allopurinol Tablet, 100 MG, [...]
--- OUTSIDE RECORDS SUMMARY | 2024-09-15 14:41 | XMS_ITS | Encounter Summary ---
Author Organization [facility] Address [address] [place] [address] Care Team Providers Care Communication Center Operator Name Role Phone Abhishek King MD Primary Care Provider [phone] Julio De Luna MD Unavailable [phone] Abhishek King MD Primary Care Provider [phone] Encounter Details Date Type Department Care Team (Late st Contact Info) Description 02/02/2020 Orders Only [facility] Health Information Management [address] [place] [address] Scanning, Provider Social History Tobacco Use Types Packs/Day Years Used Date Smoking Tobacco: Never Smokeless Tobacco: Never Comments Unknown Sex and Gender Information Value Date Recorded Sex Assigned at Not on file Legal Sex Female 12:44 AM HEAD SAWYER Gender Identity Female 04/21/2020 12:12 PM CDT [...] on filedocumented in this encounter Care Teams Communication Center Operator Relationship Specialty Start Date End Date Abhishek King MD PCP - General Family Medicine 04/30/19 04/29/23 Abhishek King MD [facility] [facility] [address] [place] [address] PCP - General Family Medicine 04/30/23 Julio De Luna MD [address] [facility] [address] [place] [address] Surgeon Vascular Surgery 04/03/22 documented as of this encounter
--- OUTSIDE RECORDS SUMMARY | 2024-09-15 14:41 | XMS_ITS | Referral Summary ---
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, severe stage (Primary Dx) from Last 3 Months Allergies No known active allergies Medications carvedilol (COREG) 6.25 mg tabletIndication s:hypertension Take 12.5 mg by mouth 2 (two) times a day with meals 3 9 Active simvastatin (ZOCOR) 10 mg tabletIndication s:hyperlipidemia Take 10 mg by mouth nightly 1 9 Active brimonidine (ALPHAGAN) 0.2 % ophthalmic solutionIndicati ons:ocular hypertension Administer 1 drop into both eyes 2 (two) times a day 11 9 Active lisinopriL (PRINIVIL,ZESTRI L) 20 mg tabletIndication s:hypertension Take 20 mg by mouth 2 (two) times a day 0 Active latanoprost (XALATAN) 0.005 % ophthalmic solutionIndicati ons:ocular hypertension Administer 1 drop into both eyes nightly 0 Active dorzolamide-lucero loL (COSOPT) 22.3-6.8 mg/mL ophthalmic solution Administer 1 drop into both eyes 2 (two) times a day 10 mL 11 5 Active FLUoxetine (PROzac) 20 mg capsuleIndicatio ns:depression Take 20 mg by mouth every morning 3 9 025 Discontin ued(Patie nt Reported) metFORMIN XR (GLUCOPHAGE XR) 500 mg 24 hr tablet Take 500 mg by mouth 2 (two) times a day 500 mg am 1000 mg pm 2 9 025 Discontin ued(Patie nt Reported) timolol (TIMOPTIC) 0.25 % ophthalmic solutionIndicati ons:ocular hypertension Administer 1 drop into both eyes 2 (two) times a day 0 025 Discontin ued(Alter hipolito therapy) ketoconazole (NIZORAL) 2 % shampooIndicatio ns:Dandruff Apply topically 2 (two) times a week 0 025 Discontin ued(Patie nt Reported) Active Problems Problem Noted Date Diagnosed Date Pseudophakia of left eye 06/14/2024 Overview (06/14/2024): CE/IOL OS 12/29/23 w/ outside provider (Dr. Manzano) S/p YAG 05/05/2024 w/ outside provider (Dr. Manzano) Assessment & Plan (06/14/2024 2:40 PM MATERIAL HANDLING WAREHOUSE SUPERVISOR): Here for second opinion. Was doing okay [...] history of dementia (but did well on [employer] thief today). No macular edema on OCT mac. Suspect her primary visual concerns are driven by her need to wear readers and difficulty using progressives given underlying dementia. We provided +2.50 OTC readers and was able to do well with near card. Blepharitis of upper and lower eyelids of both e yes 06/14/2024 Assessment & Plan (06/14/2024 2:37 PM MATERIAL HANDLING WAREHOUSE SUPERVISOR): Asymptomatic per patient. Observe. Atherosclerosis of [place] ar ekta of both lower extremities with [...] complication, without long-term current use of insulin 04/09/2022 Assessment & Plan (06/14/2024 2:29 PM MATERIAL HANDLING WAREHOUSE SUPERVISOR): No retinopathy on dilated exam Assessment & [...] of her son who is a physician porcelain buildup assistant. She did not have any improvement [...] were visible. We will write her local physical education specialist with our findings and recommendations for further evaluation. We we are happy to reevaluate the patient in the future if desired and we are making recommendations for further testing if she does return. Lucian Howard MD 03/02/2021 5:54 PM Assessment & Plan (09/14/2024 2:07 PM MATERIAL HANDLING WAREHOUSE SUPERVISOR): Hx of Tx2 2018. Patient would like to transfer care here. Significant family history HVF OS today with defect involving central fixation. IOP elevated at 18 OS on 3 classes (goal less than 15). Pachymetry with relatively normal corneal thickness, angle open at least grade 2 OS Plan: - Continue brimonidine b.i.d. OU - Continue latanoprost nightly OU - Start Cosopt b.i.d. OU - Discontinue timolol b.i.d. OU Assessment & Plan (06/14/2024 2:43 PM MATERIAL HANDLING WAREHOUSE SUPERVISOR): Hx of Tx2 2018. OCT OS today with inferior thinning. [...] PM Assessment & Plan (06/14/2024 2:37 PM MATERIAL HANDLING WAREHOUSE SUPERVISOR): Longstanding history of injury. Stable today. 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 Left Eye Fixation was borderline. Mean Deviation was -8.11 dB. Notes OD (size V): possible central fixation involving defect OS: nasal step and superior arcuate defect involving central fixation Lucian Trinidad MD [facility] VISUAL FIELD Fi nal Result * Screening Mammogram Bilateral W Jamaal (04/30/2023 1:45 PM CDT) Anatomical Region Laterality Modality Breast Bilateral Mammography Narrative 05/01/2023 10:50 AM CDT Mammogram Technique: Bilateral Digital Breast Tomosynthesis, Bilateral C-view 2D Screening mammogram. Views obtained: bilateral craniocaudal and bilateral mediolateral oblique. Computer Aided Detection was performed. Mammogram Findings: The present examination has been compared to prior imaging studies performed at [facility] on 01/29/2021, 02/02/2021 and 03/06/2022. There [...] compared to prior imaging studies performed at [facility] on 01/29/2021, 02/02/2021 and 03/06/2022. There [...] Recently Relevant to Health Maintenance Insurance MEDICARE [facility] MEDICARE [facility] MEDICARE [facility] Care Teams Blow Off Worker Relationship Specialty Start Date End Date Abhishek King MD [address] [place] [address] [address] [place] [address] PCP - General Family Medicine 04/30/23 Julio De Luna MD [address] [place] [address] [address] [place] [address] Surgeon Vascular Surgery 04/03/22
--- OUTSIDE RECORDS SUMMARY | 2024-09-15 14:41 | XMS_ITS | Clinical Summary ---
Author Organization [facility] [employer] Address [address] [place] [address] Care Team Providers Care Operations Research Analyst Name Role Phone Abhishek King MD Primary Care Provider [phone] Source Comments [facility] [employer],non-owned Affiliates and Associated Physician Practices is amultiple site organization consisting of ambulatory clinics and hospital sitesin [place], [place], [place] and [place]. This disclosure is being madepursuant to the Care Everywhere program and may not contain all information available regarding this patient. Last updated 18.[facility] [employer] Allergies No known active allergies Medications * [...] of her son who is a physician visitor services information assistant. She did not have any improvement [...] were visible. We will write her local denture contour wire specialist with our findings and recommendations for [...] age to complete this topic Care Teams Operations Research Analyst Relationship Specialty Start Date End Date Abhishek King MD [address] [place] [address] PCP - General 01/12/21
--- OUTSIDE RECORDS SUMMARY | 2024-09-15 14:41 | XMS_ITS | Clinical Summary ---
Author Organization [facility] Address [address] [place] [address] Care Team Providers Care Supervisor Salvage Name Role Phone Julio De Luna MD Unavailable [phone] Abhishek King MD Primary Care Provider [phone] Allergies No known active allergies Medications carvedilol [...] Manzano) Assessment & Plan (06/14/2024 2:40 PM DIGITAL STRATEGY SPECIALIST): Here for second opinion. Was doing okay [...] history of dementia (but did well on Bin1 ATE today). No macular edema on OCT mac. Suspect her primary visual concerns are driven by her need to wear readers and difficulty using progressives given underlying dementia. We provided +2.50 OTC readers and was able to do well with near card. Blepharitis of upper and lower eyelids of both e yes 06/14/2024 Assessment & Plan (06/14/2024 2:37 PM DIGITAL STRATEGY SPECIALIST): Asymptomatic per patient. Observe. Atherosclerosis of [place] ar ekta of both lower extremities with [...] 04/09/2022 Assessment & Plan (06/14/2024 2:29 PM DIGITAL STRATEGY SPECIALIST): No retinopathy on dilated exam Assessment & [...] her son who is a physician assistant superintendent. She did not have any improvement in [...] were visible. We will write her local fire support specialist with our findings and recommendations for further evaluation. We we are happy to reevaluate the patient in the future if desired and we are making recommendations for further testing if she does return. Lucian Howard MD 03/02/2021 5:54 PM Assessment & Plan (09/14/2024 2:07 PM DIGITAL STRATEGY SPECIALIST): Hx of SLTx2 2018. Patient would like to transfer care [...] OU Assessment & Plan (06/14/2024 2:43 PM DIGITAL STRATEGY SPECIALIST): Hx of SLTx2 2018. OCT OS today [...] PM Assessment & Plan (06/14/2024 2:37 PM DIGITAL STRATEGY SPECIALIST): Longstanding history of injury. Stable today. 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 Left Eye Fixation was borderline. Mean Deviation was -8.11 dB. Notes OD (size V): possible central fixation involving defect OS: nasal step and superior arcuate defect involving central fixation us Lucian Trinidad MD OPHTH VISUAL FIELD Fi nal Result * Screening [...] prior imaging studies performed at [facility] on 01/29/2021, 02/02/2021 and 03/06/2022. [...] prior imaging studies performed at [facility] on 01/29/2021, 02/02/2021 and 03/06/2022. [...] Recently Relevant to Health Maintenance Insurance MEDICARE [facility] MEDICARE [facility] MEDICARE [facility] Care Teams Supervisor Salvage Relationship Specialty Start Date End Date Abhishek King MD [address] [place] [address] [address] [place] [address] PCP - General Family Medicine 04/30/23 Julio De Luna MD [address] [place] [address] Surgeon Vascular Surgery 04/03/22
--- OUTSIDE RECORDS SUMMARY | 2024-09-15 14:41 | XMS_ITS | Continuity of Care Document ---
Author Organization [facility] Address [address] [facility] [address] [place] [address] Phone Care Team Providers Care Academic Physician Name Role Phone Wilner Zamorano Unavailable Unavailable Procedures Procedure Date Visual Field Examination(s) Eye Exam & Treatment Refraction Visual Field Examination(s) Office/outpatient Visit, Est Eye Exam Established Pt Office Consultation Advance Directives Directive Yes / No Effective Date File Name No Information Encounters Encounter Description Practice Location Reason(s) For Visit Diagnoses Date Provider Providers Copied on Encounter [facility], [address] [place] [address] [address], [place], [place], [id number], tel:[phone] [facility] No Information 0 Jaun Darby. [address], [place], [address], [place]. tel:[phone] Referring Provider: Dorothy Russell [facility] [address], [place], [address]. tel:[phone] [facility], [address] [place] [address] [address], [place], [place], [id number], tel:[phone] [facility] No Information 201 0 Krishnasandrew Valentín. [address] [facility] [address], [place], [address], [place]. tel:[phone] [facility], [address] [place] [address] [address], [place], [place], [id number], [place] tel:[phone] [facility] No Information May-0 6-200 9 Krishnasamy Valentín. [facility] [facility] [address], [place], [address], [place]. tel:[phone] Referring Provider: Valentín luevano, [address] [place], [place] [address]ate [facility] [address], [place], [address]. tel:[phone] Office/outpati ent Visit, [facility], [address] [place] [address] [address], [place], [place], [id number], [place] tel:[phone] [facility] No Information 1200 [address] Krishnasamy Valentín. [address] [place] [address], [place], [facility], [place]. tel:[phone] Referring Provider: Abhishek King MD, [address] [place] [address], [address]. tel:[phone] [facility], [address] [place] [address] [address], [place], [place], [id number], [place] tel:[phone] [facility] No Information 7-200 8 Krishnasamy Valentín. [address] [place] [address], [place], [address], [place]. tel:[phone] Office Consultation [facility], [address] [place] [address] [address], [place], [place], [id number], [place] tel:[phone] SEC [facility] No Information 2-200 7 Bryan Jefferson. [address] [place] [address], [address], [place], [place], [id number], [place]. tel:[phone] Referring Provider: Bryanna Sanchezh, [address] [place] [address], [place], [address]. Family History Family Member Type Diagnosis Age At Onset No Information Payers Payer name Insurance type Covered green party ID Authoriza tion(s) No Information Social [...]
--- OUTSIDE RECORDS SUMMARY | 2024-09-15 14:41 | XMS_ITS | Patient Health Summary ---
Author Organization [facility] Address [address] [facility] [place] [address] Care Team Providers Care Rouge Sifter Name Role Phone Abhishek King MD Primary Care Provider [phone] Note from [facility],non-owned Affiliates and Associated Physician Practices is amultiple site organization consisting of ambulatory clinics and hospital sitesin [place], [place], [place] and [place]. This disclosure is being madepursuant to the Care Everywhere program and may not contain all information available regarding this patient. Last updated 18.[facility] Allergies No known active allergies Medications [...] 2:42 PM CDT Lucian Howard MD O[facility]THALMOLOGY [facility] Care Teams Rouge Sifter Relationship Specialty Start Date End Date Abhishek King MD [address] [place] [phone] PCP - General 01/12/21
--- OUTSIDE RECORDS SUMMARY | 2024-09-15 14:41 | XMS_ITS | Clinical Summary ---
Author Organization [facility] Address [address] [place] [address] Care Team Providers Care Loan Assistant Name Role Phone Abhishek King MD Primary Care Provider [phone]- [phone] Allergies No known active allergies Medications latanoprost [...] Acute encephalopathy 09/04/2022 Colitis 07/11/2022 Atherosclerosis of [place] ar ekta of both lower extremities with [...] complication, without long-term current use of insulin ([facility]) 04/09/2022 Overview (09/07/2022): Last Assessment & Plan: [...] of her son who is a physician web press operator assistant. She did not have any improvement [...] were visible. We will write her local safety specialist with our findings and recommendations for [...] of her son who is a physician web press operator assistant. She did not have any improvement [...] were visible. We will write her local safety specialist with our findings and recommendations for [...] often do you attend chur ch or cheondoism services? Never 07/12/2022 Do you belong to any clubs o r organizations such as muslim groups, unions, fraternal or athletic groups, or [...] Recorded Patient Health Questionnaire-2 Score 0 09/23/2022 [facility] - Occupational Stress [...] place to sleep or slept in a correction (including now)? No 09/05/2022 Comments No Sex and Gender Information Value Date Recorded Sex Assigned at Not on file Legal Sex Female 11:15 AM RN INTERN Gender Identity Not on file Sexual Orientation [...] 2017 Dexa Scan (General) 2017 PHQ-2 (Physician [place]) 09/24/2023 09/23/2022 COVID-19 Vaccine ( - season) 2024 05/09/2021, 10/07/2020, 09/14/2020 Influenza Adult (#1) 2024 04/11/2022, 05/09/2021, 05/05/2020, Additional history exists PHQ-2 (Physician [place]) 07/14/2024 09/23/2022 RSV Immunization or 60+ Years [...] Lifestyle No Toma Prado RN Insurance MEDICARE [facility] Advance Directives * Full Code (Latest Code Status on File) Date Activated Date Inactivated Comments 09/04/2022 9:37 PM 09/09/2022 7:37 PM * Full Code Date Activated Date Inactivated Comments 07/11/2022 5:16 PM 07/14/2022 2:11 PM Care Teams Loan Assistant Relationship Specialty Start Date End Date Abhishek King MD [facility] [facility] [address] [place] [address] PCP - General FAMILY PRACTICE 07/11/22
--- OUTSIDE RECORDS SUMMARY | 2024-09-15 14:41 | XMS_ITS | Patient Health Record ---
Author Organization [facility] Address [address] [facility] [address] [place] [address] Care Team Providers Care Manager Of Creative Services Name Role Phone Verito Fields Unavailable [phone] Abhishek King MD Unavailable Unavailable Allergies No [...] Coverage End Date DO NOT USE AR [id number] IsaiahMichelle olivia Self - patient is the insured [facility] [address] [place] [address] [phone] [id number] [place] PointMichelle olivia Self - patient is the insured Medical (General) History Surgical History Surgery Date(Month/Year) rotator cuff repair; 2019-07-24 Hysterectomy; 2019-07-24 cholecystectomy; 2019-07-24
--- OUTSIDE RECORDS SUMMARY | 2024-09-15 14:41 | XMS_ITS | Clinical Summary ---
Author Organization [facility] Address [address] [facility] [place] [address] Care Team Providers Care Stock Analyst Name Role Phone Abhishek King MD Primary Care Provider [phone]- [phone] Allergies No known active allergies Medications brimonidine [...] st Contact Info) Description 09/16/2024 1:15 PM STATION SUPERVISOR Office Visit [facility] - Yehuda [address] [facility] [address] [place] [address] Colton Sanders MD [address] [facility] [address] [place] [address] Health Maintenance Due Date Last Done Comments DIABETES ANNUAL FOOT EXAM 1970 DIABETES HBA1C Q 6 MONTHS 1970 DIABETES MICROALBUMIN ANNUAL SCREEN 1970 LDL CHOLESTEROL ANNUAL 1970 DTAP/TDAP/TD VACCINES (1 - Tdap) 10/07/1971 PNEUMOCOCCAL VACCINE 50+ YEA RS (1 of 2 - PCV) [...] Maintenance Insurance MEDICARE PART A AND B [facility] [id number] Member Subscriber Plan / Payer (Ef fective 2023-Present) Name:Michelle Colon Relation to Subscriber:Self Name:Michelle Colon Payer ID:[id number] (NAIC) Group ID:Not on file Type:Supplemental Address: [place] [id number] Care Teams Stock Analyst Relationship Specialty Start Date End Date Abhishek King MD [address] [place] [phone] PCP - General Family Practice 02/10/24
--- OUTSIDE RECORDS SUMMARY | 2024-09-15 14:41 | XMS_ITS | Clinical Summary ---
Author Organization [facility] Address [address], [address] [address] Phone Care Team Providers Care Dance Teacher Name Role Phone Abhishek King MD Primary Care Provider [phone]- [phone] Medications polyethylene glycol (MIRALAX) Powder Use entire [...] patient's age to complete this topic Insurance [facility] Care Teams Dance Teacher Relationship Specialty Start Date End Date Abhishek King MD [address] [place] [address] [address] [place], [place] [phone] PCP - General Family Medicine 11/18/16
--- OUTSIDE RECORDS SUMMARY | 2024-09-15 14:41 | XMS_ITS | Encounter Summary ---
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, severe stage Procedures Perez Visual Field - OU [place] [address] [place] [address] Phone: tel: fax: [facility] (All Locations) Referral ID Status Reason Start Date Expiration Date V isits Requested Visits Authorized [id number] Authorized 09/14/2024 10/14/2025 1 1 APPLICATION SUPPORT ANALYST Reason for Visit * Reason Comments Ocular trauma of right eye, sequela Encounter Details Date Type Department Care Team (Late st Contact Info) Description 09/14/2024 10:30 AM IT APPLICATION SUPPORT ANALYST Office Visit [facility] Ophthalmology [address] [place] [address] [address] [place] [id number] Lucian Trinidad MD [address] [address] 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, severe stage (Primary Dx) Social History Tobacco Use Types Packs/Day Years Used Date Smoking Tobacco: Former Cigarettes 0.5 33 1 978 - 2010 Smokeless Tobacco: Never Alcohol Use Standard Drinks/Week Comments Yes 0 (1 standard drink = 0.6 oz pur e alcohol) social Comments No Sex and Gender Information Value Date Recorded Sex Assigned at Not on file Legal Sex Female 12:44 AM IT APPLICATION SUPPORT ANALYST Gender Identity Female 04/21/2020 12:12 PM CDT Sexual Orientation Straight 04/21/2020 12 :12 PM CDT documented as of this encounter Ordered Prescriptions Prescription Sig Dispense Quantity Refills Last Filled Start Date End Date dorzolamide-timolo L (COSOPT) 22.3-6.8 mg/mL ophthalmic solution Administer 1 drop into both eyes 2 (two) times a day 10 mL 11 09/14/2024 documented in this encounter Progress Notes * Lucian Trinidad MD - 09/14/2024 10:30 AM CST Assessment and Plan Problem List Eye/Vision Problems 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 She did not have any improvement in her symptoms with recent trial of Restasis. Undilated examination today does show significant potential damage from glaucoma on OCT of the left eye that could reflect moderate to severe damage and unknown threat to central vision on baseline information today. Gonioscopy does raiseconcern about critically narrow angle especially of the left eye with borderline appositional closure in some areas of the angle and very high iris insertion both eyes with multiple iris processes diffusely on the right eye were visible. We will write her local contract specialist with our findings and recommendations for further evaluation. We we are happy to reevaluate the patient in the future if desired and we are making recommendations for further testing if she does return. Lucian Howard MD 03/02/2021 5:54 PM Current Assessment & Plan Hx of SLTx2 2019. Patient would like to transfer care here. [...] b.i.d. OU - Discontinue timolol b.i.d. OU Relevant Medications dorzolamide-timoloL (COSOPT) 22.3-6.8 mg/mL ophthalmic solution Other Relevant Orders Perez Visual Field - OU - Both Eyes Follow Up: Return in about 6 weeks (around 10/26/2024) for IOP check. Cosigned by Rj Gómez, OD at 09/15/2024 8:56 AM IT APPLICATION SUPPORT ANALYST APPLICATION SUPPORT ANALYST APPLICATION SUPPORT ANALYST Associated attestation - Rj Gómez, OD - 09/15/2024 8:56 AM IT APPLICATION SUPPORT ANALYST I was present with the resident during the history and exam. I discussed this patient with the resident and agree with the findings and plan as documented in the their note. I have made corrections and additions as appropriate. 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 Patient would like to transfer care here. [...] b.i.d. OU - Discontinue timolol b.i.d. 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 Left Eye Fixation was borderline. Mean Deviation was -8.11 dB. 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, severe stage- Primary documented in this encounter Discontinued Medications Medication Sig Discontinue Reason Start Date End Da te ketoconazole (NIZORAL) 2 % shampooIndications:Papo carrillo Apply topically 2 (two) times a week Patient Reported 03/16/2020 09/14/2024 timolol (TIMOPTIC) 0.25 % ophthalmic solutionIndications:ocu lar hypertension Administer 1 drop into both eyes 2 (two) times a day Alternate therapy 01/21/2020 09/14/2024 FLUoxetine (PROzac) 20 mg capsuleIndications:depr ession Take 20 mg by mouth every morning Patient Reported 03/18/2019 09/14/2024 metFORMIN XR (GLUCOPHAGE XR) 500 mg 24 hr tablet Take 500 mg by mouth 2 (two) times a day 500 mg am 1000 mg pm Patient Reported 04/03/2019 09/14/2024 documented as of this encounter Eye Exam Visual Acuity (Snellen - Linear) Right eye Left eye Dist cc 20/200 20/50 +2 Dist ph cc NI 20/25 +1 Correction: Glasses Tonometry #1 (I-Care, 11:10 AM) Right eye Left eye Pressure 20 18 Tonometry #2 (Applanation, 11:35 AM) Right eye Left eye Pressure 18 23 Tonometry #3 (Applanation, 11:43 AM) Right eye Left eye Pressure 18 Pachymetry (09/14/2024) Right eye Left eye Thickness 553 509 Pupils Dark Light Shape React APD Right eye 2 Irregular Minimal None Left eye 3 2 Round Minimal None Visual Norris (Counting fingers) Right eye Left eye Full Restrictions Partial outer superior temporal deficiency Extraocular Movement Right eye Left eye Full Full Neuro/Psych Oriented x3: Yes Mood/Affect: Normal External Exam Right eye Left eye External Normal Normal Slit Lamp Exam Right eye Left eye Lids/Lashes telangiectasia along lid margin telangiectasia along lid margin Conjunctiva/Sclera Trace injection posterior lid erythema Cornea corneal haze/ scar at 9, PEE Pardeep ar Anterior Chamber Deep and quiet Deep and quiet Iris IK touch at 9 oclock Round and r eactive Lens NS PCIOL with open capsule Anterior Vitreous Normal Normal Care Teams Social Work Therapist Relationship Specialty Start Date End Date Abhishek King MD [address] [facility] [address] [facility] [place] [address] PCP - General Family Medicine 04/30/23 Julio De Luna MD [address] [place] [address] Surgeon Vascular Surgery 04/03/22 documented as of this encounter
--- OUTSIDE RECORDS SUMMARY | 2024-09-15 14:42 | XMS_ITS ---
Author Organization [facility] Address [address] [place] [address] Care Team Providers Care Floor Supervisor Name Role Phone Verito Fields Unavailable [phone] Abhishek King MD Unavailable Unavailable zzzzMigration, zzzzProvider Unavailable Unav ailable Allergies No Known Allergies REASON [place]ISIT [place] [place] Medication SIG (Take, Route, Frequency, Duration) [...] Active Encounters Encounter Location Date Provider Diagnosis [facility] [address] [place] [address] 05/04/2023 zzzzProvider zzzzMigration Plan Of Treatment No Information Progress Notes * Michelle GUZMANDOB:[birth year] (73 yo F)Acc No.[id number]:05/04/2023 Patient: Michelle MCKEE :1950 A ge:72 Y S ex:Female Address:[address] [place], [place] [id number] Subjective: * Chief Complaints: * E MR-Toy * Medical History: * Surgical History: r otator cuff repair; [id number]; [id number]; 2019-07-24 * Hospitalization/Major Diagno stic Procedure: * [...]
[2024-09-15 16:42] LABS: Iron 99 ug/dL (37-170)
[2024-09-15 16:46] LABS: Alanine Aminotransferase 71 U/L (6-35); Albumin Level 4.4 g/dL (3.5-5.1); Alkaline Phosphatase 140 U/L (38-126); Anion Gap 10 mmol/L (4-12); Aspartate Amino Transferase 48 U/L (14-36); Bilirubin,Total 0.8 mg/dL (0.2-1.3); Blood Urea Nitrogen 21 mg/dL (7-17); Calcium 9.7 mg/dL (8.4-10.2); Carbon Dioxide 28 mmol/L (22-30); Chloride 100 mmol/L (98-107); Estimated Glomerular Filt Rate > 60; Glucose 146 mg/dL (65-110); Potassium 5.2 mmol/L (3.4-5.0); Sodium 138 mmol/L (137-145)
[2024-09-15 16:53] LABS: Percent Iron Saturation 29 % (20-50)
[2024-09-15 17:53] LABS: Folic Acid > 20.0 ng/mL (2.76->20)
== END 2024-09-15 13:20 | disposition home or self-care (01) ==
PROVIDERS: PCP Family Medicine; Visit Provider Internal Medicine Hematology & Oncology
DX: D50.9 Iron deficiency anemia, unspecified (principal)
CPT/HCPCS: 36415; 80053; 82607; 82728; 82746; 83540; 83550; 85025

== ENCOUNTER 2025-02-24 08:55 | Outpatient (CLI) | payer MEDICARE, SELFPAY ==
--- OUTSIDE RECORDS SUMMARY | 2025-02-24 09:04 | XMS_ITS | Clinical Summary ---
Author Organization [facility] Address [address] [place] [address] Care Team Providers Care City Treasurer Name Role Phone Abhishek King MD Primary Care Provider [phone] Source Comments [facility],non-owned Affiliates and Associated Physician Practices is amultiple site organization consisting of ambulatory clinics and hospital sitesin [place], [place], [place] and [place]. This disclosure is being madepursuant to the Care Everywhere program and may not contain all information available regarding this patient. Last updated 18.[facility] Allergies No known active allergies Medications * Be aware that medications may not be up to date on this document. Alwaysverify current medications with the patient. brimonidine (ALPHAGAN) 0.2 % ophthalmic solution Instill 1 drop into both eyes 2 times daily 1 Active calcipotriene (DOVONEX) 0.005 % cream 1 Active carvedilol (COREG) 25 MG tablet 1 Active RESTASIS MULTIDOSE 0.05 % ophthalmic suspension Instill 1 drop into both eyes 2 times daily 1 Active FLUoxetine (PROZAC) 20 MG capsule Take 20 mg by mouth once daily 1 Active hydrocortisone (HYTONE) 2.5 % ointment APPLY TO AFFECTED AREAS TWICE A DAY FOR 2 WEEKS THEN ONLY TWICE A DAY ON WEEKENDS 1 Active ketoconazole (NIZORAL) 2 % shampoo USE SHAMPOO DAILY FOR TWO WEEKS THEN TWICE PER WEEK. 1 Active latanoprost (XALATAN) 0.005 % ophthalmic solution Instill 1 drop into both eyes at bedtime 1 Active lisinopril (PRINIVIL; ZESTRIL) 20 MG tablet 1 Active meloxicam (MOBIC) 15 MG tablet Take 15 mg by mouth once daily 1 Active metFORMIN ER 24hr (GLUCOPHAGE XR) 500 MG tablet TAKE 1 TABLET BY MOUTH EVERY MORNING AND TAKE 2 TABLETS IN THE EVENING 1 Active metroNIDAZOLE (METROGEL) 0.75 % gel APPLY TO FACE ONCE A DAY 1 Active mometasone (ELOCON) 0.1 % cream APPLY TO EAR CANAL DAILY FOR ITCHING 1 Active rosuvastatin (CRESTOR) 10 MG tablet Take 10 mg by mouth once daily 1 Active spironolactone (ALDACTONE) 50 MG tablet Take 50 mg by mouth 2 times daily 1 Active timolol maleate (TIMOPTIC) 0.25 % ophthalmic solution Instill 1 drop into both eyes 2 times daily 1 Active tobramycin-dexAM ETHasone (TOBRADEX) 0.3-0.1 % ophthalmic ointmentIndicati ons:Dry eye syndrome of both eyes,Blepharitis of both eyes, unspecified eyelid, unspecified type Instill into both eyes at bedtime 3.5 g 11 1 Active Active Problems Problem Noted Date Diagnosed Date 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 She did not have any improvement in [...] were visible. We will write her local strategy specialist with our findings and recommendations for [...] Lucian Howard MD 03/02/2021 5:56 PM Immunizations Immunization Administration Dates Next Due INFLUENZA VACCINE, QUADR. [...] pur e alcohol) Socially every few months Comments Unknown Sex and Gender Information Value Date Recorded Sex Assigned at Not on file Legal Sex Female 3:26 PM CDT Gender Identity Not on file Sexual [...] - 2023-2 5 season) 2024 10/07/2020, 09/14/2020 DEPRESSION SCREENING 07/14/2024 INFLUENZA VACCINE (#1) 2025 , 04/29/2019, 05/01/2018 Respiratory Syncytial Virus (RSV) Vaccine Pt: or [...] complete this topic MENINGOCOCCAL (Group B) VACCINE SHARED DECISION-MAKING Aged Out No longer eligible based on patient's age to complete this topic MENINGOCOCCAL GROUPS A/C/Y/W VACCINE Aged Out No longer eligible b ased on patient's age to complete this topic Insurance MEDICARE Care Teams City Treasurer Relationship Specialty Start Date End Date Abhishek King MD [address] [place] [id number] PCP - General 01/12/21
--- OUTSIDE RECORDS SUMMARY | 2025-02-24 09:04 | XMS_ITS | Clinical Summary ---
Author Organization [facility] Address [address], [address] [address] Phone Care Team Providers Care Saw Cleaner Name Role Phone Abhishek King MD Primary Care Provider [phone] Medications polyethylene glycol (MIRALAX) Powder Use entire [...] Health Maintenance Due Date Last Done Comments Hepatitis C Virus (HCV) Screening 1950 TdaP Immunization 1950 Cologuard 1997 Colonoscopy 1997 Colorectal Cancer Screening 1997 Immunochemical Fecal Occult Blood 1997 Pneumococcal Immunization (5 0+ years) (1 of 1 - PCV) 2002 Zoster Immunization (1 of 2) 2002 SARS-COV-2 Immunization (1 - season) 2024 Influenza Immunization (#1) 2025 Respiratory Syncytial Virus (RSV) Immunization (Adult) (1 - 1-dose 75+ series) 10/07/2027 Hepatitis B Immunization Aged Out No longer eligible based on patient's age to complete this topic Human Papillomavirus (HPV) Immunization Aged Out No longer eligible b ased on patient's age to complete this topic Meningococcal Immunization (ACWY) Aged Out No longer eligible based on patient's age to complete this topic Rotavirus Immunization Aged Out No lo nger eligible based on patient's age to complete this topic Insurance [facility] Care Teams Saw Cleaner Relationship Specialty Start Date End Date Abhishek King MD [address] [place] [address] [address] [place] [address] PCP - General Family Medicine 11/18/16
--- OUTSIDE RECORDS SUMMARY | 2025-02-24 09:04 | XMS_ITS | Encounter Summary ---
Author Organization [facility] Address [address] [place] [address] Care Team Providers Care Laserist Name Role Phone Abhishek King MD Primary Care Provider [phone] Julio De Luna MD Unavailable [phone] Abhishek King MD Primary Care Provider [phone] Encounter Details Date Type Department Care Team (Late st Contact Info) Description 02/02/2020 Orders Only [facility] Health Information Management [address] [place] [address] Scanning, Provider Social History Tobacco Use Types Packs/Day Years Used Date Smoking Tobacco: Never Smokeless Tobacco: Never Comments Unknown Sex and Gender Information Value Date Recorded Sex Assigned at Not on file Legal Sex Female 12:44 AM MAGNETIC 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
--- OUTSIDE RECORDS SUMMARY | 2025-02-24 09:04 | XMS_ITS | Clinical Summary ---
Author Organization [facility] Address [address] [place] [address] Care Team Providers Care Agricultural Extension Agent Name Role Phone Abhishek King MD Primary Care Provider [phone]- [phone] Allergies No known active allergies Medications latanoprost [...] Acute encephalopathy 09/04/2022 Colitis 07/11/2022 Atherosclerosis of kletsel dehe wintun ar ekta of both lower extremities with [...] complication, without long-term current use of insulin ([facility]) 04/09/2022 Overview (09/07/2022): Last Assessment & Plan: [...] of her son who is a physician children's nursery assistant. She did not have any improvement [...] were visible. We will write her local marine habitat resource specialist with our findings and recommendations for [...] of her son who is a physician children's nursery assistant. She did not have any improvement [...] were visible. We will write her local marine habitat resource specialist with our findings and recommendations for [...] 07/14/2022 Acute kidney injury 07/14/2022 07/14/19 Immunizations Immunization Administration Dates Next Due Influenza (Generic) 05/05/2020,04/29/2019 [...] often do you attend chur ch or buddhism services? Never 07/12/2022 Do you belong to any clubs o r organizations such as faith groups, unions, fraternal or athletic groups, or [...] Recorded Patient Health Questionnaire-2 Score 0 09/23/2022 [facility] - Occupational Stress [...] place to sleep or slept in a retirement (including now)? No 09/05/2022 Comments No Sex and Gender Information Value Date Recorded Sex Assigned at Not on file Legal Sex Female 11:15 AM INSURANCE PROCESSING CLERK Gender Identity Not on file Sexual Orientation [...] 11:13 AM CDT Height 167.6 cm (5' 6) 02/20/2023 11:13 AM CDT Body Mass Index 21.63 02/20/2023 11:13 AM CDT Plan of Treatment Health Maintenance Due Date Last Done Comments ASCVD LDL 1950 ASCVD Statin 1950 Kidney Health Evaluation 1950 Hemoglobin A1C 1950 Lipid Panel 1950 Diabetes: Retinopathy Eye Exam 1970 Hepatitis C 1970 DTaP, Tdap and Td Vaccines ( 1 - Tdap) 10/07/1971 Pneumococcal Vaccine: 50+ Years (1 of 2 - PCV) 10/07/1971 Mammogram Screening 1992 Zoster Vaccines (1 of 2) 2002 Annual Medicare Wellness Visit 2017 Dexa Scan (General) 2017 COVID-19 Vaccine (4 - 2023-2 5 season) 2024 05/09/2021, 10/07/2020, 09/14/2020 PHQ-2 (Physician Lorimor) 07/14/2024 RSV Immunization or 60+ Years (1 - 1-dose 75+ series) 10/07/2027 Colorectal Cancer Screening Colonoscopy (10 Years) 11/06/2032 11/06/2022 Meningococcal B Vaccine Aged Out No l onger eligible based on patient's age to complete this topic Meningococcal Vaccine Aged Out No annamarie faiza eligible based on patient's age to complete this topic RSV Immunizations Under 20 Months Aged Out No longer eligible b ased on patient's age to complete this topic Goals Goal Patient Goal Type Associated Problems Recent Progress Patient-Stated? Author Patient will return to prior living situation and remain independent in ADLs upon discharge from hospital Lifestyle No Toma Prado, RN Insurance MEDICARE [facility] Advance Directives * Full Code (Latest Code Status on File) Date Activated Date Inactivated Comments 09/04/2022 9:37 PM 09/09/2022 7:37 PM * Full Code Date Activated Date Inactivated Comments 07/11/2022 5:16 PM 07/14/2022 2:11 PM Care Teams Agricultural Extension Agent Relationship Specialty Start Date End Date Abhishek King MD [address] [place] [address] [address] PCP - General FAMILY PRACTICE 07/11/22
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
--- OUTSIDE RECORDS SUMMARY | 2025-02-24 09:04 | XMS_ITS | Continuity of Care Document ---
Author Organization [facility] Address [address] [facility] [address] [place] [address] Phone Care Team Providers Care Business Banking Officer Name Role Phone Wilner Zamorano Unavailable Unavailable Procedures Procedure Date Visual Field Examination(s) Eye Exam & Treatment Refraction Visual Field Examination(s) Office/outpatient Visit, Est Eye Exam Established Pt Office Consultation Advance Directives Directive Yes / No Effective Date File Name No Information Encounters Encounter Description Practice Location Reason(s) For Visit Diagnoses Date Provider Providers Copied on Encounter [facility], [address] [place] [address] [address], [place], [place], [id number], tel:[phone] [facility] No Information 0 Jaun Darby. [address] [facility] [address], [place], [address], [place]. tel:[phone] Referring Provider: Dorothy Russell [facility] [address], [place], [address]. tel:[phone] [facility], [address] [place] [address] [address], [place], [place], [id number], tel:[phone] SEC [facility] No Information 201 0 Krishnasandrew Valentín. [address] [facility] [address], [place], [address], [place]. tel:[phone] [facility], [address] [place] [address] [address], [place], [place], [id number], [place] tel:[phone] [facility] No Information May-0 6-200 9 Krishnasamy Valentín. [facility] [address], [place], [address], [place]. tel:[phone] Referring Provider: Valentín luevano, [address] [place], [place] [address]ate [facility] [address], [place], [address]. tel:[phone] Office/outpati ent Visit, [facility], [address] [place] [address] [address], [place], [place], [id number], [place] tel:[phone] SEC [facility] No Information 1200 9 Krishnasamy Valentín. [address] [place] [address], [place], [facility], [place]. tel:[phone] Referring Provider: Abhishek King MD, [address] [place] [address], [address]. tel:[phone] [facility], [address] [place] [address] [address], [place], [place], [id number], [place] tel:[phone] SEC [facility] No Information 7-200 8 Krishnasamy Valentín. [address] [place] [address], [place], [address], [place]. tel:[phone] Office Consultation [facility], [address] [place] [address] [address], [place], [place], [id number], [place] tel:[phone] SEC [facility] No Information 2-200 7 Bryan Jefferson. [address] [place] [address], [place], [place], [address], [place]. tel:[phone] Referring Provider: Bryanna Sanchezh, [address] [place] [address], [place], [address]. Family History Family Member Type Diagnosis Age At Onset No Information Payers Payer name Insurance type Covered libertarian ID Authoriza tion(s) No Information Social History [...]
--- OUTSIDE RECORDS SUMMARY | 2025-02-24 09:04 | XMS_ITS | Clinical Summary ---
[facility] Address [address] [facility] [address] Care Team Providers Care Door Paneler Name Role Phone Abhishek King MD Primary Care Provider [phone] Allergies No known active allergies Medications brimonidine (ALPHAGAN) 0.2 % solution instill 1 drop into affected eye(s) by ophthalmic route every 12 hours Ophthalmic 3 Active FLUoxetine (PROzac) 20 mg capsule Take 20 mg by mouth daily. Active lisinopriL (PRINIVIL) 20 mg tablet Take 20 mg by mouth daily. 1 Active rosuvastatin (CRESTOR) 5 mg tablet Take 5 mg by mouth daily. Active tobramycin-dexA METHasone (TOBRADEX) 0.3-0.1 % ointment by Ophthalmic route. 1 Active QUEtiapine (SEROquel) 25 mg tablet Take 25 mg by mouth 2 times daily. Active Active Problems No known active problems Encounters Date Type Department Care Team Description 01/26/2025 External Device Data ST[facility] ABSTRACTION Provider, Abstract 01/26/2025 External Device Data [facility] ABSTRACTION Provider, Abstract 01/26/2025 External Device Data [facility] ABSTRACTION Provider, Abstract 12/29/2024 External Device Data [facility] ABSTRACTION Provider, Abstract 12/28/2024 External Device Data ST[facility] ABSTRACTION Provider, Abstract 12/02/2024 External Device Data [facility] ABSTRACTION Provider, Abstract 12/01/2024 External Device Data [facility] ABSTRACTION Provider, Abstract 12/01/2024 External Device Data STL ABSTRACTION Provider, Abstract [...] Sign Reading Time Taken Comments Blood Pressure 124/79 09/16/2024 1:26 PM STRIP STAMP STRAIGHTENER Pulse 74 09/16/2024 1:26 PM STRIP STAMP STRAIGHTENER Temperature 35.8 C (96.5 F) 09/16/2024 1:26 PM STRIP STAMP STRAIGHTENER Respiratory Rate 15 09/16/2024 1:26 PM STRIP STAMP STRAIGHTENER Oxygen Saturation 96% 09/16/2024 1:26 PM STRIP STAMP STRAIGHTENER Inhaled Oxygen Concentration - - Weight 70.6 kg (155 lb 9.6 oz) 09/16/2024 1:26 P M STRIP STAMP STRAIGHTENER Height 167.6 cm (5' 6) 02/05/2024 11:17 AM CDT Body Mass Index 25.11 02/05/2024 11:17 AM CDT Plan of Treatment Health Maintenance Due Date Last Done Comments DIABETES ANNUAL FOOT EXAM 1970 DIABETES MICROALBUMIN ANNUAL SCREEN 1970 LDL CHOLESTEROL ANNUAL 1970 DTAP/TDAP/TD VACCINES (1 - Tdap) 10/07/1971 PNEUMOCOCCAL VACCINE 50+ YEA RS (1 of 2 - PCV) 10/07/1971 FIT-DNA Q 3 years 1997 FIT/FOBT Q 1 year 1997 Flex Sig/CT Colonography Q 5 years 1997 ZOSTER VACCINE (1 of 2) 2002 COVID-19 Vaccine (2023-2 5 season) 2024 05/09/2021, 10/07/2020, 09/14/2020 INFLUENZA VACCINE (#1) 2025 05/01/2018 DIABETES HBA1C Q 6 MONTHS 03/07/20252024, 04/27/2024, 04/21/2024, Additional history exists DIABETES ANNUAL RETINAL EXAM 06/14/202508/2023, 06/14/2024, 11/13/2023, Additional history exists BREAST CANCER SCREENING 10/14/2025 10/15/19 25, 10/14/2024, 04/30/2023, Additional history exists OSTEOPOROSIS SCREENING 03/15/2026 03/15/2021 RSV VACCINE (60+ or ) (1 - 1-dose 75+ series) 10/07/2027 COLORECTAL SCREENING 02/24/2034 02/25/2024, 02/25/2024, 02/25/2024, Additional history exists Colorectal Cancer Screening 02/24/2034 Procedures Procedure Name [...] Maintenance Insurance MEDICARE PART A AND B [facility] [id number] Care Teams Door Paneler Relationship Specialty Start Date End Date Abhishek King MD [address] [place] [phone] PCP - General Family Practice 02/10/24
--- OUTSIDE RECORDS SUMMARY | 2025-02-24 09:05 | XMS_ITS | Patient Health Record ---
Author Organization [facility] Address [address] [facility] [address] [place] [address] Care Team Providers Care Sanitation Officer Name Role Phone Verito Fields Unavailable [phone] Abhishek King MD Unavailable Unavailable Allergies No [...] Coverage End Date DO NOT USE AR [id number] OelweinMichelle olivia Self - patient is the insured [facility] [address] [place] [id number] IsaiahMichelle olivia Self - patient is the insured Medical (General) History Surgical History Surgery Date(Month/Year) rotator cuff repair; 2019-07-24 Hysterectomy; 2019-07-24 cholecystectomy; 2019-07-24
[2025-02-24 11:22] LABS: Hematocrit 49.0 % (37.0-47.0); Hemoglobin 15.5 g/dL (12.0-15.0); Immature Granulocyte Percent A 0.6 % (0-0.5); Immature Platelet Fraction Pct 8.7 % (0.9-11.2); Lymphocytes Absolute Auto 1.25 K/mm3 (0.9-3.2); Mean Corpuscular HGB Conc 31.6 g/dl (32-36); Mean Corpuscular Hemoglobin 28.4 pg (26-34); Mean Corpuscular Volume 89.7 fl (80-100); Nucleated Red Blood Cells Absolute Auto 0.000 K/mm3 (0.0-0.012); Nucleated Red Blood Cells Perc 0.0 % (0.0-0.2); Platelet Count Result 228 k/mm3 (150-375); Red Blood Count 5.46 M/mm3 (4.2-5.4); White Blood Count 7.8 K/mm3 (4.5-10.0)
[2025-02-24 11:24] LABS: Alanine Aminotransferase 74 U/L (6-35); Albumin Level 4.3 g/dL (3.5-5.1); Alkaline Phosphatase 169 U/L (38-126); Anion Gap 10 mmol/L (4-12); Aspartate Amino Transferase 65 U/L (14-36); Bilirubin,Total 0.9 mg/dL (0.2-1.3); Blood Urea Nitrogen 15 mg/dL (7-17); Calcium 9.7 mg/dL (8.4-10.2); Carbon Dioxide 23 mmol/L (22-30); Chloride 103 mmol/L (98-107); Estimated Glomerular Filt Rate > 60; Glucose 233 mg/dL (65-110); Potassium 4.6 mmol/L (3.4-5.0); Sodium 136 mmol/L (137-145); Total Protein 8.2 g/dL (6.3-8.2)
[2025-02-24 12:05] LABS: Thyroid Stimulating Hormone 0.248 uIU/mL (0.465-4.680)
[2025-02-24 12:11] LABS: Schistocytes None Seen
[2025-02-24 15:24] LABS: Hemoglobin A1C 9.9 % (<5.7)
== END 2025-02-24 08:56 | disposition home or self-care (01) ==
LOC: ANHGOSHLAB 08:56
PROVIDERS: PCP Family Medicine; Visit Provider Family Medicine
DX: E11.65 Type 2 diabetes mellitus with hyperglycemia (principal)
CPT/HCPCS: 36415; 80053; 83036; 84443; 85025; 85055